=== PATIENT | male | born 1945 | race Caucasian/White ===

== ENCOUNTER → 2019-04-29 09:37 | Outpatient (CLI) | payer MEDICARE, OTHER, SELFPAY ==
--- NOTE | 2019-04-29 | DI.RAD.S_ITS ---
PROCEDURE: XR CHEST 2V INDICATIONS: COUGH TECHNIQUE: 2 views of the chest were acquired. COMPARISON: [facility], , CHEST 2 VIEW, 03/02/2015, 18:48. FINDINGS: Surgical changes and devices: None. Lungs and pleura: Lungs are clear. No pleural effusions or pneumothorax. Mediastinum: Mediastinal contours are normal. Heart size is normal. Bones and chest wall: No suspicious bony abnormalities. Soft tissues appear unremarkable. IMPRESSION: No acute cardiopulmonary findings. Dictated by: Lesly Barraza M.D. on 04/29/2019 at 11:15 Approved by: Lesly Barraza M.D. on 04/29/2019 at 11:15
== END ==
PROVIDERS: PCP Family Medicine; Visit Provider Family Medicine
DX: R05 Cough (principal)
CPT/HCPCS: 71046

== ENCOUNTER 2020-01-20 05:24 | Observation (INO) | payer MEDICARE, OTHER, SELFPAY ==
[2020-01-20] VITALS (9 sets, daily range): BP systolic 125–165; BP diastolic 74–96; PULSE 63–75; RESP 15–18; TEMP 36.3–36.7; O2SAT 96–100; BMI 25.1; BMI 23.9
--- NOTE | 2020-01-20 05:27 | ED.GENADULT ---
HPI - General Adult General Chief complaint: Urogenital-Male Stated complaint: thinks passing kidney stone or appendix Time Seen by Provider: 01/20/20 05:25 Source: patient Mode of arrival: Ambulatory Limitations: no limitations History of Present Illness HPI narrative: 74-year-old male with a history of Parkinson's disease here for evaluation of right-sided flank/abdomen/periumbilical pain. He states that he has had pain in this area off and on for the past couple days however he did wake up with the pain approximately 2 hours prior to arrival and his been worse since that time than it was earlier this week. He does admit that potentially he could be constipated. Denies any urinary symptoms. No fevers. No nausea. No vomiting. Has not tried anything for symptoms prior to arrival. He states that it feels somewhat like a kidney stone that he had in the past but this was 30 years ago and he has not commence that it feels exactly the same way. Has had his gallbladder out still has his appendix. Related Data Home Medications Medication Instructions Recorded Confirmed amantadine HCl 100 mg PO QDAY #0 03/24/16 01/20/20 carbidopa-levodopa 1 tab PO QID #0 03/24/16 01/20/20 propranolol 80 mg PO QDAY #0 03/24/16 01/20/20 rasagiline [Azilect] 1 mg PO QDAY #0 03/24/16 01/20/20 atorvastatin 20 mg PO DAILY 01/20/20 01/20/20 metoprolol succinate 25 mg PO DAILY 01/20/20 01/20/20 pramipexole See Protocol PO DAILY 01/20/20 01/20/20 Allergies Allergy/AdvReac Type Severity Reaction Status Date / Time No Known Allergies Allergy Uncoded 01/20/20 05:34 Review of Systems Constitutional Constitutional: Denies fever(s) Cardiovascular Cardiovascular: Denies chest pain and Denies dyspnea Respiratory Respiratory: Denies dyspnea Gastrointestinal Gastrointestinal: Reports abdominal pain, Reports constipation, Denies nausea and Denies vomiting Genitourinary Genitourinary: Denies hematuria, Denies dysuria, Denies urinary frequency, Denies urinary hesitancy and Denies urinary incontinence Genitourinary: Denies hematuria, Denies urinary frequency, Denies dysuria, Denies urinary incontinence and Denies urinary hesitancy Musculoskeletal Musculoskeletal: Denies arthralgias, Reports back pain (Right-sided flank) and Denies myalgias Integumentary/Breasts Skin/Breast: Denies lesions and Denies rash Neurologic Neurologic: Denies behavioral changes Psychiatric Psychiatric: Denies behavioral changes Hematologic/Lymphatic Hematologic/Lymphatic: Denies easy bleeding and Denies easy bruising Allergic/Immunologic Allergic/Immunologic: Denies urticaria Patient History Medical History Parkinsons disease (Acute) Social History household members: spouse Smoking Status: Never smoker Exam Initial Vital Signs Initial Vital Signs: Vital Signs Temperature 97.8 F 01/20/20 05:25 Pulse Rate 67 01/20/20 05:25 Respiratory Rate 16 01/20/20 05:25 Blood Pressure 165/83 H 01/20/20 05:25 Pulse Oximetry 98 01/20/20 05:25 Const General: cooperative and comfortable Limitations: mental status not altered HENMT Head: normal to inspection and normocephalic Resp Effort & Inspection: normal respiratory effort Cardio Rate: regular rate GI Inspection: non-distended Palpation: soft, No firm and tender (Right-sided flank, right lower quadrant, suprapubic) Back/Spine/Pelvis Back: CVA tenderness right Skin Lesions: no lesions Rashes: no rashes Neuro General: patient alert and patient awake Cognition: normal cognition Speech: speech normal Extrem General: normal to inspection and capillary refill normal Psych Appearance: grossly normal and well kempt Scores GCS [place] coma scale eye opening: Spontaneous Taylor coma scale verbal response: Orientated Taylor coma scale motor response: Obey commands [place] coma scale total score: 15 Course Orders Ordered: ED Orders 01/20/20 05:34 CT abdomen pelvis w con Stat 01/20/20 05:39 Complete Blood Count AUTO DIFF Stat Comprehensive Metabolic Panel Stat Lipase Stat 01/20/20 06:59 Consult to General Surgery Stat Sodium Chloride (Normal Saline 0.9%) 1,000 mls @ 500 mls/hr IV BOLUS ONE Stop: 01/20/20 07:33 Last Admin: 01/20/20 06:02 Dose: 500 mls/hr Documented by: RNESTER Discontinued Medications Ketorolac Tromethamine (Toradol) 30 mg IV NOW ONE Stop: 01/20/20 05:40 Last Admin: 01/20/20 06:02 Dose: 30 mg Documented by: MIRANDA Morphine Sulfate (Morphine) 4 mg IV NOW ONE Stop: 01/20/20 05:35 Last Admin: 01/20/20 06:12 Dose: Not Given Documented by: DESI Morphine Sulfate (Morphine) 2 mg IV NOW ONE Stop: 01/20/20 06:08 Vital Signs Vital signs: Vital Signs - 8 hr 01/20/20 05:25 Temperature 97.8 F Pulse Rate 67 Respiratory Rate 16 Blood Pressure 165/83 H Pulse Oximetry 98 Medical Decision Making Lab Data Lab results reviewed: Yes I reviewed the patient's lab results. Result diagrams: 01/20/20 05:39 01/20/20 05:39 Labs: Lab Results 01/20/20 01/20/20 Range/Units 05:39 05:39 WBC 7.4 (4.5-11.0) X10^3/uL RBC 4.77 (4.5-5.9) X10^6/uL Hgb 15.5 (13.5-17.5) g/dL Hct 45.7 (41-53) % MCV 95.9 (80-100) fL MCH 32.6 (26-34) PG MCHC 34.0 (30-36) % RDW 14.0 (11.6-14.8) % Plt Count 214 (150-400) X10^3/uL Neut % (Auto) 78.7 H (50-75) % Lymph % (Auto) 13.4 L (25-40) % [place] % (Auto) 6.4 (3-14) % Eos % (Auto) 1.0 L (2-4) % Baso % (Auto) 0.5 (0-2) % Neut # (Auto) 5900 (9018-2015) /uL Lymph # (Auto) 1000 L (4347-1894) /uL [place] # (Auto) 500 (0-900) /uL Eos # (Auto) 100 (0-450) /uL Baso # (Auto) 0 (0-100) /uL Sodium 139 (137-145) mmol/L Potassium 4.1 (3.4-5.1) mmol/L Chloride 102 (98-107) mmol/L Carbon Dioxide 30 (22-32) mmol/L BUN 25 H (9-20) mg/dL Creatinine 1.19 (0.66-1.25) mg/dL Estimated GFR 59.6 L (>60) mL/min BUN/Creatinine Ratio 21.0 (6-22) Glucose 111 H (80-110) mg/dL Calcium 9.8 (8.4-10.2) mg/dL Total Bilirubin 1.1 (0.2-1.3) mg/dL AST 24 (17-59) IU/L ALT 6 (<50) IU/L Alkaline Phosphatase 111 (38-126) U/L Total Protein 7.3 (6.3-8.2) g/dL Albumin 4.6 (3.5-5.0) g/dL Globulin 2.7 (1.7-4.1) g/dL Albumin/Globulin Ratio 1.7 (1.0-2.8) Lipase 63 (23-300) U/L Imaging Data CT scan - abdomen/pelvis: Radiologist's Impression: High-grade mechanical small bowel obstruction, transition anterior pelvic region. MDM Narrative Medical decision making narrative: History and physical exam and CT scan are consistent with a small-bowel obstruction. Patient not vomiting. Denied the need for nausea medication. Discussed the case with Dr. Sexton who's on-call for General surgery. Will hold on an injury to known. Will admit to Dr. Sexton for further evaluation and treatment. Discussed the case with the patient. He expressed understanding and agreement. Discharge Plan Departure Patient Disposition: Admitted As Inpatient Clinical Impression: Small bowel obstruction, Parkinson's disease
--- NOTE | 2020-01-20 05:34 | DI.CT.S_ITS ---
PROCEDURE: CT ABDOMEN PELVIS W CON INDICATIONS: Periumbilical right lower quadrant abdominal pain TECHNIQUE: After the administration of intravenous contrast, 5 mm thick sections acquired from the diaphragms to the symphysis. 2.5 mm thick coronal and sagittal reformats were acquired. Optional 10-minute delayed imaging may be performed from the kidneys to the bladder. For radiation dose reduction, the following was used: automated exposure control, adjustment of mA and/or kV according to patient size. COMPARISON: None. FINDINGS: Image quality: Excellent. ABDOMEN: Lung bases: Lung bases are clear. Heart size is normal. No pericardial effusion. Inferior ribs are intact. No basal pleural effusions or pneumothorax. Solid organs: Liver is normal in size and enhancement, without lacerations. Gallbladder status post cholecystectomy. . Biliary system is non-dilated. Pancreas enhances normally, without transection. Spleen is normal in size and enhancement, without lacerations. No adrenal hematomas. Both kidneys enhance normally, without hydronephrosis or lacerations. 3 mm calculus in the left interpolar kidney without obstruction. Small bilateral cysts, largest in the right upper pole measuring approximately 4 cm. Peritoneum and bowel: There is a small bowel obstruction. Nearly diffuse dilatation of the small bowel up to 5 cm with numerous air-fluid levels. There is fecalization of small bowel contents distally just proximal to high-grade stenosis in the right lower quadrant (series 2, image 67). There is no perforation. Small volume free fluid is present in the pelvis likely related to the obstruction. There is sigmoid diverticulosis with no findings of diverticulitis. The colon is otherwise within normal limits. Nodes and vessels: No retroperitoneal or mesenteric adenopathy. Aorta and inferior vena cava are normal in size and enhancement. Miscellaneous: No ventral hernias. PELVIS: Genitourinary: Bladder wall thickness is normal. Miscellaneous: No inguinal hernias or adenopathy. Bones: Pelvic ring and hip joints appear intact. No vertebral compression fractures. IMPRESSION: High-grade small-bowel obstruction with transition point in the right lower quadrant. No significant change from preliminary report. Findings were discussed with Dr. De La O at 8:03 a.m. on 01/20/2020. Dictated by: Jayson Lee M.D. on 01/20/2020 at 7:58 Approved by: Jayson Lee M.D. on 01/20/2020 at 8:04
--- NOTE | 2020-01-20 05:44 | PC.NURSE ---
Patient reports right sided flank pain starting two days ago. Symptoms occuring on and off until awoken this AM with increased pain. Patient reports pain located on right side, umbilical area, and radiating into right flank. Reports pain as 7/10. Affirms some nausea, denies vomiting. Denies any other symptoms. States I think it's either a kidney stone or my appendix.
[2020-01-20 05:49] LABS: Add Manual Diff / Slide Review NO; Basophils Absolute Auto 0 /uL (0-100); Basophils Percent Auto 0.5 % (0-2); Eosinophils Absolute Auto 100 /uL (0-450); Hematocrit 45.7 % (41-53); Hemoglobin 15.5 g/dL (13.5-17.5); Lymphocytes Absolute Auto 1000 /uL (1100-4500); Lymphocytes Percent Auto 13.4 % (25-40); Mean Corpuscular Hemoglobin 32.6 PG (26-34); Mean Corpuscular Volume 95.9 fL (80-100); Monocytes Absolute Auto 500 /uL (0-900); Monocytes Percent Auto 6.4 % (3-14); Neutrophils Absolute Auto 5900 /uL (1500-7000); Neutrophils Percent Auto 78.7 % (50-75); Platelet Count 214 X10^3/uL (150-400); Red Blood Cell Count 4.77 X10^6/uL (4.5-5.9); White Blood Cell Count 7.4 X10^3/uL (4.5-11.0)
[2020-01-20 06:00] LABS: Alanine Aminotransferase 6 IU/L (<50); Albumin 4.6 g/dL (3.5-5.0); Albumin Globulin Ratio 1.7 (1.0-2.8); Alkaline Phosphatase 111 U/L (38-126); Aspartate Aminotransferase 24 IU/L (17-59); Bilirubin Total 1.1 mg/dL (0.2-1.3); Blood Urea Nitrogen 25 mg/dL (9-20); Calcium 9.8 mg/dL (8.4-10.2); Carbon Dioxide 30 mmol/L (22-32); Chloride 102 mmol/L (98-107); Estimated Glomerular Filt Rate 59.6 mL/min (>60); Globulin 2.7 g/dL (1.7-4.1); Glucose 111 mg/dL (80-110); HEMOLYSIS 16 (0-50); Lipase 63 U/L (23-300); Potassium 4.1 mmol/L (3.4-5.1); Sodium 139 mmol/L (137-145); Total Protein 7.3 g/dL (6.3-8.2)
[2020-01-20] MEDS: KETOROLAC 60 MG/2 ML VIAL 30 MG IV (06:02)
[2020-01-20] MEDS: SODIUM CHLORIDE 0.9% 1,000 ML 500 ML IV (06:02)
[2020-01-20 08:02] LABS: COVID19 -Nasal RAPID Negative (Negative)
--- NOTE | 2020-01-20 08:46 | DI.RAD.S_ITS ---
PROCEDURE: [place] SMALL BOWEL FOLLOW THROUGH INDICATIONS: small bowel obstruction. Perform with gastrografin COMPARISON: None. 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 No suspicious abdominal calcifications. Visualized solid organ contours appear normal. No suspicious bony abnormalities. Small bowel: There is abnormally prolonged transit time of barium through the small bowel. Small bowel loops are of dilated caliber throughout where well visualized. Mucosal folds are smooth and of normal thickness. No strictures, intraluminal masses, or extrinsic mass effects are noted. The terminal ileum is identified, and is normal in morphology. The water-soluble contrast predominantly sequestered within the gastric lumen over the entire course of this examination, with very little antegrade flow of contrast into the small bowel. Small bowel contrast did not extend into the colon after at least 5 hours of delay. IMPRESSION: Small mild dilatation measure 5.7 cm with delayed transit of oral contrast through the small bowel into the colon. At no point over the course of this study, terminated at 5:00 a.m. After initiation, was small-bowel seen to extend into the colon. Quality of visualization of the small bowel content is very limited due to the small amount the progress forwards, and osmotic dilution of the contrast. Dictated by: Josiah Ricks M.D. on 01/20/2020 at 14:54 Approved by: Josiah Ricks M.D. on 01/20/2020 at 14:56
[2020-01-20 08:59] LABS: Appearance Urine UA CLEAR; Bilirubin Urine UA NEGATIVE (NEGATIVE); Color Urine UA YELLOW; Glucose Urine UA NEGATIVE (Negative); Ketones Urine UA TRACE (NEGATIVE); Leukocyte Esterase Urine UA NEGATIVE (NEGATIVE); Nitrite Urine UA NEGATIVE (Negative); Occult Blood Urine UA NEGATIVE (Negative); Protein Urine UA NEGATIVE (Negative); Urobilinogen Urine UA 0.2 E.U./dL (0.2); pH Urine UA 6.5 (4.5-8.0)
[2020-01-20 09:11] LABS: Bacteria Urine Few (2-10); Culture Indicated Urine Cult Not Indicated; RBC Urine 0-1/HPF (0-5/HPF); WBC Urine 0-1/HPF (0-5/HPF)
--- NOTE | 2020-01-20 09:17 | P.HP_ITS ---
History of Present Illness History of Present Illness Date Patient Seen: 01/20/20 Time Patient Seen: 09:17 Chief complaint: thinks passing kidney stone or appendix Narrative: Feng is a 74-year-old man who is seen in consultation for small- bowel obstruction. He was having some vague abdominal pain with last couple of days and thought that he was perhaps having a kidney stone and presented to the emergency room for evaluation. He had a CT of the abdomen pelvis which demonstrates a small-bowel obstruction with a transition point in the pelvis. He was afebrile white blood cell count 7. He says that he is passing a small amount of air no stool in several days. He has prior history of abdominal surgery laparoscopic cholecystectomy. He is mildly nauseated, no vomiting. no prior history of small-bowel obstruction. Medical history is significant for Parkinson's, hypertension, atrial fibrillation for which is rate controlled with beta blockade. Patient History Medical History Atrial fibrillation (Acute) Parkinsons disease (Acute) Surgical History History of cholecystectomy (Acute) Family & Social History Social History: household members spouse Safety & Behavioral: Feels Safe in Current Yes Environment Been Physically Hurt or No Threatened By a Person Tobacco & Substance use: Smoking Status Never smoker alcohol intake frequency 0-2 drinks per day Substance Use Type does not use Meds Home Medications and Allergies Home Medications Medication Instructions Recorded Confirmed Type amantadine HCl 100 mg PO QDAY #0 03/24/16 01/20/20 History carbidopa-levodopa 0.5 tab PO Q4H #0 03/24/16 01/20/20 History propranolol 80 mg PO BEDTIME #0 03/24/16 01/20/20 History atorvastatin 20 mg PO DAILY 01/20/20 01/20/20 History carbidopa-levodopa 1 tab PO Q4H 01/20/20 01/20/20 History metoprolol succinate 25 mg PO DAILY 01/20/20 01/20/20 History pramipexole 1 mg PO BEDTIME 01/20/20 01/20/20 History selegiline HCl 5 mg PO BEDTIME 01/20/20 01/20/20 History Allergies Allergy/AdvReac Type Severity Reaction Status Date / Time No Known Allergies Allergy Uncoded 01/20/20 05:34 Review of Systems Review of Systems Narrative: A 10 point review of systems is negative except as noted in the HPI Exam Vital Signs (past 8 hours): - 01/20/20 05:25 01/20/20 07:00 01/20/20 08:06 Temperature 97.8 F Pulse Rate 67 64 65 Respiratory Rate 16 16 Blood Pressure 165/83 H 137/75 136/74 Pulse Oximetry 98 98 97 Oxygen Delivery Method Room Air Narrative Exam Narrative: General-no acute distress, well nourished adult male HEENT-moist mucous membranes, no scleral icterus Neck-supple, no lymphadenopathy Chest- non labored respirations, clear to auscultation bilaterally Cardiac-regular rate no peripheral edema Abdomen-soft, minimally tender periumbilical, non distended Extremities-warm, well perfused Neurological-alert and oriented, tremulous hands Objective Labs Result Diagrams: 01/20/20 05:39 01/20/20 05:39 Labs: Laboratory Results - last 24 hr 01/20/20 01/20/20 01/20/20 05:39 05:39 07:00 WBC 7.4 RBC 4.77 Hgb 15.5 Hct 45.7 MCV 95.9 MCH 32.6 MCHC 34.0 RDW 14.0 Plt Count 214 Neut % (Auto) 78.7 H Lymph % (Auto) 13.4 L [place] % (Auto) 6.4 Eos % (Auto) 1.0 L Baso % (Auto) 0.5 Neut # (Auto) 5900 Lymph # (Auto) 1000 L [place] # (Auto) 500 Eos # (Auto) 100 Baso # (Auto) 0 Sodium 139 Potassium 4.1 Chloride 102 Carbon Dioxide 30 BUN 25 H Creatinine 1.19 Estimated GFR 59.6 L BUN/Creatinine Ratio 21.0 Glucose 111 H Calcium 9.8 Total Bilirubin 1.1 AST 24 ALT 6 Alkaline Phosphatase 111 Total Protein 7.3 Albumin 4.6 Globulin 2.7 Albumin/Globulin Ratio 1.7 Lipase 63 Urine Color Urine Appearance Urine pH Ur Specific [place] Urine Protein Urine Glucose (UA) Urine Ketones Urine Occult Blood Urine Nitrate Urine Bilirubin Urine Urobilinogen Ur Leukocyte Esterase Urine RBC Urine WBC Urine Bacteria Ur Culture Indicated? COVID-19 PCR Negative 01/20/20 08:30 WBC RBC Hgb Hct MCV MCH MCHC RDW Plt Count Neut % (Auto) Lymph % (Auto) [place] % (Auto) Eos % (Auto) Baso % (Auto) Neut # (Auto) Lymph # (Auto) [place] # (Auto) Eos # (Auto) Baso # (Auto) Sodium Potassium Chloride Carbon Dioxide BUN Creatinine Estimated GFR BUN/Creatinine Ratio Glucose Calcium Total Bilirubin AST ALT Alkaline Phosphatase Total Protein Albumin Globulin Albumin/Globulin Ratio Lipase Urine Color Yellow Urine Appearance Clear Urine pH 6.5 Ur Specific [place] 1.010 Urine Protein Negative Urine Glucose (UA) Negative Urine Ketones Trace H Urine Occult Blood Negative Urine Nitrate Negative Urine Bilirubin Negative Urine Urobilinogen 0.2 Ur Leukocyte Esterase Negative Urine RBC 0-1/hpf Urine WBC 0-1/hpf Urine Bacteria Few (2-10) H Ur Culture Indicated? Cult not indicated COVID-19 PCR Assessment & Plan Assessment & Plan narrative: 74-year-old man with atrial fibrillation and Parkinson's disease who is admitted with a small-bowel obstruction history of abdominal surgery. Reviewed his CT which demonstrates small-bowel obstruction with transition point. He is afebrile it without peritonitis. I recommended that we proceed with conservative management at this time. Small-bowel follow- through has been ordered. No need for nasogastric tube at this point unless he becomes nauseated with emesis. -NPO IV fluids -small-bowel follow-through -SCDs for VT prophylaxis -okay for home meds
[2020-01-20] MEDS: SODIUM CHLORIDE 0.9% 1,000 ML 100 ML IV (10:36)
[2020-01-20] MEDS: CARBIDOPA-LEVODOPA 25/100 TABLET 0.5 EACH PO ×3 (13:09→20:53)
[2020-01-20] MEDS: CARBIDOPA-LEVODOPA ER 50/200 TABLET 0.5 EACH PO ×3 (13:09→20:53)
[2020-01-20] MEDS: HYDROMORPHONE 1 MG INJ 0.5 MG IV (13:09)
[2020-01-20] MEDS: AMANTADINE 100 MG CAPSULE PO (13:12)
--- NOTE | 2020-01-20 14:30 | PC.NURSE ---
Admit Note Pt arrived to rm [id number] at 0815 via wheelchair from ER. Pt alert and oriented. Denied abdominal pain on arrival, last BM yesterday, not passing flatus. Denies nausea. Tremors noted to Jonathon and pt's Parkinson's meds given at that time. Dr. Sexton at bedside to eval patient and meds ok to be given with sips of water, otherwise pt NPO. Small bowel follow up done this afternoon, pt received Dilaudid x1 for pain 4/10 to upper abd. SBA in room, steady on feet. Oriented to room at arrival and to call light/bed/tv controls. Declines to lock up any valuables. Laptop, cell phone, and glasses at bedside. Call light within reach.
[2020-01-20] MEDS: PRAMIPEXOLE 1 MG TABLET PO (20:53)
[2020-01-20] MEDS: SELEGILINE 5 MG CAPSULE PO (20:53)
[2020-01-20] MEDS: PROPRANOLOL ER 80 MG CAP.SA.24H PO (20:53)
--- NOTE | 2020-01-20 23:17 | PC.NURSE ---
Patient had incontinent BM around 1629, then showered. Around 1899 patient had another loose BM and an occurrence of emesis. Patient has not had any emesis since then and has no nausea. Dr. Collins was notified of emesis and no new orders were received.
[2020-01-21] VITALS: BP 95/62; PULSE 65; RESP 16; TEMP 36.3; O2SAT 96
[2020-01-21] MEDS: CARBIDOPA-LEVODOPA 25/100 TABLET 0.5 EACH PO ×4 (01:35→13:46)
[2020-01-21] MEDS: CARBIDOPA-LEVODOPA ER 50/200 TABLET 0.5 EACH PO ×4 (01:36→13:46)
[2020-01-21 04:15] VITALS: O2SAT 96
--- NOTE | 2020-01-21 05:26 | PC.NURSE ---
Pt has been awake most of the night and having loose stools.
[2020-01-21] MEDS: SODIUM CHLORIDE 0.9% 1,000 ML 100 ML IV (05:33)
[2020-01-21 05:43] VITALS: BP 106/63; PULSE 68; RESP 20; TEMP 36.2; O2SAT 97
[2020-01-21 05:55] LABS: Add Manual Diff / Slide Review NO; Basophils Absolute Auto 0 /uL (0-100); Basophils Percent Auto 0.5 % (0-2); Eosinophils Absolute Auto 100 /uL (0-450); Eosinophils Percent Auto 1.7 % (2-4); Hematocrit 43.7 % (41-53); Hemoglobin 14.4 g/dL (13.5-17.5); Lymphocytes Absolute Auto 600 /uL (1100-4500); Lymphocytes Percent Auto 7.2 % (25-40); Mean Corpuscular HGB Conc 32.9 % (30-36); Mean Corpuscular Hemoglobin 32.2 PG (26-34); Mean Corpuscular Volume 97.8 fL (80-100); Monocytes Absolute Auto 400 /uL (0-900); Monocytes Percent Auto 5.4 % (3-14); Neutrophils Absolute Auto 6600 /uL (1500-7000); Neutrophils Percent Auto 85.2 % (50-75); Platelet Count 219 X10^3/uL (150-400); Red Blood Cell Count 4.47 X10^6/uL (4.5-5.9); Red Cell Distribution Width 14.4 % (11.6-14.8); White Blood Cell Count 7.7 X10^3/uL (4.5-11.0)
[2020-01-21 06:03] LABS: BUN Creatinine Ratio 20.7 (6-22); Blood Urea Nitrogen 23 mg/dL (9-20); Calcium 9.6 mg/dL (8.4-10.2); Carbon Dioxide 28 mmol/L (22-32); Chloride 110 mmol/L (98-107); Estimated Glomerular Filt Rate > 60.0 mL/min (>60); Glucose 109 mg/dL (80-110); HEMOLYSIS < 15 (0-50); Magnesium 2.2 mg/dL (1.6-2.3); Potassium 4.7 mmol/L (3.4-5.1); Sodium 143 mmol/L (137-145)
--- NOTE | 2020-01-21 07:49 | DI.RAD.S_ITS ---
PROCEDURE: XR ABDOMEN 1V INDICATIONS: Neg SBFT yesterday had bowel movement afterward but vomited TECHNIQUE: One view of the abdomen acquired. COMPARISON: [facility], [place], [place] SMALL BOWEL FOLLOW THROUGH, 01/20/2020, 8:02. [facility], CT, CT ABDOMEN PELVIS W CON, 01/20/2020, 6:03. FINDINGS: Surgical changes and devices: Surgical clips in the gallbladder fossa. Bowel: A few scattered residual dilated air-filled small bowel loops are present. Overall there are fewer dilated small bowel loops visible. There is oral contrast throughout the colon and in the rectum. No free intraperitoneal air detected. Soft tissues: No suspicious abdominal calcifications. Visualized solid organ contours appear normal in size. Bones: No suspicious bony lesions. IMPRESSION: 1. Oral contrast throughout the colon suggests resolution of small bowel obstruction. 2. There are few scattered prominent small bowel loops visible suggesting residual ileus versus persistent partial obstruction. Dictated by: Radha Amor M.D. on 01/21/2020 at 8:49 Approved by: Radha Amor M.D. on 01/21/2020 at 8:52
[2020-01-21 08:57] VITALS: BP 113/69; PULSE 55; RESP 16; TEMP 36.2; O2SAT 98
[2020-01-21] MEDS: AMANTADINE 100 MG CAPSULE PO (09:36)
--- NOTE | 2020-01-21 10:12 | P.PN_ITS ---
Subjective Subjective Date Patient Seen: 01/21/20 Time Patient Seen: 10:13 Interval history: Small-bowel follow-through yesterday and demonstrated new transit of contrast after 5 hours. Several hours later he had a large amount of stool output and he was started on clear liquid diet. Later that evening he had several bouts of emesis but he has had no nausea no further vomiting for the past 12 hours. He is continuing to pass gas and have loose stool. No abdominal pain. Exam Vital Signs (past 8 hours): - 01/21/20 04:15 01/21/20 05:43 01/21/20 08:57 Temperature 97.2 F L 97.2 F L Pulse Rate 68 55 L Respiratory Rate 20 16 Blood Pressure 106/63 113/69 Pulse Oximetry 96 97 98 Oxygen Delivery Method Room Air Oxygen Flow Rate 0 Narrative Exam Narrative: General adult male alert oriented no acute distress Abdomen soft minimally tender to palpation bilateral lower quadrants nondistended no peritonitis Objective Labs Result Diagrams: 01/21/20 05:35 01/21/20 05:35 Labs: Laboratory Results - last 24 hr 01/21/20 01/21/20 05:35 05:35 WBC 7.7 RBC 4.47 L Hgb 14.4 Hct 43.7 MCV 97.8 MCH 32.2 MCHC 32.9 RDW 14.4 Plt Count 219 Neut % (Auto) 85.2 H Lymph % (Auto) 7.2 L [place] % (Auto) 5.4 Eos % (Auto) 1.7 L Baso % (Auto) 0.5 Neut # (Auto) 6600 Lymph # (Auto) 600 L [place] # (Auto) 400 Eos # (Auto) 100 Baso # (Auto) 0 Sodium 143 Potassium 4.7 Chloride 110 H Carbon Dioxide 28 BUN 23 H Creatinine 1.11 Estimated GFR > 60.0 BUN/Creatinine Ratio 20.7 Glucose 109 Calcium 9.6 Magnesium 2.2 Assessment & Plan Assessment and plan (1) Small bowel obstruction: Status: Acute Assessment & Plan narrative: 74-year-old man admitted with a small-bowel obstruction which appears to be resolving. He had small-bowel follow-through study yesterday and I reviewed his abdominal x-ray from today which demonstrates contrast throughout his colon is also having bowel movements. Will advance his diet from clear liquids to regular. If he is doing well this afternoon then he may potentially discharge home. Quality VTE Deep Vein Thrombosis/Pulmonary Embolism Present on Admission: No
[2020-01-21 10:16] VITALS: O2SAT 99
[2020-01-21 12:00] VITALS: BP 102/58; PULSE 62; RESP 16; TEMP 36.2; O2SAT 99
--- NOTE | 2020-01-21 14:07 | CM.IDA ---
Initial DCP Assessment Note Patient is a 74 yo male, resident of [place]. Patient presents w/abd discomfort, SBO identified by Dr Sexton. PCP: Alfredo Du Payer: MARIAA/Randal reviewed chart. SAMUEL Avila explains patient is doing well, may be able to DC home if regular diet is tolerated. 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 Active in room, spouse at bedside. Will follow closely in case this changes today JW
--- NOTE | 2020-01-21 15:49 | PC.NURSE ---
1535- Patient given discharge instruction and he verbalizes understanding. IV heplock removed. Patient escorted to the ER entrance to wait for his ride. Stable at the time of discharge.
--- NOTE | 2020-01-21 16:54 | P.DS_ITS ---
History of Present Illness History of Present Illness Chief complaint: thinks passing kidney stone or appendix Narrative: Feng is a 74-year-old man who is seen in consultation for small- bowel obstruction. He was having some vague abdominal pain with last couple of days and thought that he was perhaps having a kidney stone and presented to the emergency room for evaluation. He had a CT of the abdomen pelvis which demonstrates a small-bowel obstruction with a transition point in the pelvis. He was afebrile white blood cell count 7. He says that he is passing a small amount of air no stool in several days. He has prior history of abdominal surgery laparoscopic cholecystectomy. He is mildly nauseated, no vomiting. no prior history of small-bowel obstruction. Medical history is significant for Parkinson's, hypertension, atrial fibrillation for which is rate controlled with beta blockade. Discharge Providers Provider Date of admission: 01/20/20 07:50 Discharge Date: 01/21/20 Primary care physician: Alfredo Du MD Consults: 01/20/20 06:59 Consult to General Surgery Stat Comment: Consulting Provider: Bill Sexton Reason for consultation: Small-bowel obstruction Has provider been notified: Yes Discharge provider: Bill Sexton MD Summary Hospital Course Discharge Diagnosis: Small-bowel obstruction Hospital Course: His manage conservatively for his presumed adhesive small-bowel obstruction. A small-bowel follow-through study with Gastrografin was performed. And was therapeutic. He had resolution of his abdominal pain and multiple bowel movements. A follow-up x-ray demonstrates contrast throughout the colon. His diet was advanced as tolerated. On the date of discharge he is feeling well tolerating regular diet without nausea vomiting. Status at Discharge Cognitive/behavioral status at discharge: oriented Functional status at discharge: independent ambulation Exam Vital Signs (past 8 hours): - 01/21/20 08:57 01/21/20 10:16 01/21/20 12:00 Temperature 97.2 F L 97.2 F L Pulse Rate 55 L 62 Respiratory Rate 16 16 Blood Pressure 113/69 102/58 L Pulse Oximetry 98 99 99 Oxygen Delivery Method Room Air Oxygen Flow Rate 0 Narrative Exam Narrative: General adult male alert oriented no acute distress Abdomen soft nontender nondistended Objective Labs Result Diagrams: 01/21/20 05:35 01/21/20 05:35 Labs: Laboratory Results - last 24 hr 01/21/20 01/21/20 05:35 05:35 WBC 7.7 RBC 4.47 L Hgb 14.4 Hct 43.7 MCV 97.8 MCH 32.2 MCHC 32.9 RDW 14.4 Plt Count 219 Neut % (Auto) 85.2 H Lymph % (Auto) 7.2 L [place] % (Auto) 5.4 Eos % (Auto) 1.7 L Baso % (Auto) 0.5 Neut # (Auto) 6600 Lymph # (Auto) 600 L [place] # (Auto) 400 Eos # (Auto) 100 Baso # (Auto) 0 Sodium 143 Potassium 4.7 Chloride 110 H Carbon Dioxide 28 BUN 23 H Creatinine 1.11 Estimated GFR > 60.0 BUN/Creatinine Ratio 20.7 Glucose 109 Calcium 9.6 Magnesium 2.2 Discharge Plan Discharge Plan Patient Disposition: Home Discharge comment: resolved small bowel obstruction Discharge orders & Medications Prescriptions: Continued amantadine HCl 100 MG capsule 100 mg PO QDAY Qty: 0 RF: 0 propranolol 80 MG capsule,extended release 24 hr 80 mg PO BEDTIME Qty: 0 RF: 0 carbidopa-levodopa 25 MG/100 MG tablet 0.5 tab PO Q4H Qty: 0 RF: 0 pramipexole 1 mg Tablet 1 mg PO BEDTIME RF: 0 atorvastatin 20 mg Tablet 20 mg PO DAILY RF: 0 metoprolol succinate 25 mg Tablet Extended Release 24 Hr 25 mg PO DAILY RF: 0 carbidopa-levodopa 25-100 mg tablet extended release 1 tab PO Q4H RF: 0 selegiline HCl 5 mg capsule 5 mg PO BEDTIME RF: 0 trospium 20 mg Tablet 20 mg PO DAILY RF: 0 Follow up/Referrals: Alfredo Du MD [Primary Care Provider] - Diet/Activity/Treatments Diet: Regular Visit Report/Discharge Packet Visit Report Forms: Patient Portal/API, Stroke Signs & Symptoms Discharge Data Primary Care Provider: Alfredo Du Attending Provider: Bill Sexton Admit Date/Time: 01/20/20 07:50 Discharges patient from system. Discharge Date/Time: 01/21/20 15:35 Quality VTE Deep Vein Thrombosis/Pulmonary Embolism Present on Admission: No
== END 2020-01-21 15:35 | disposition home or self-care (01) ==
LOC: ED 06:54 → AC 08:04 → ICU 09:20 → AC 01-21 11:10
PROVIDERS: Surgery; Admitting Provider Surgery; Emergency Provider Emergency Medicine; PCP Family Medicine; Referring Provider Emergency Medicine; Visit Provider Surgery
DX: K56.609 Unspecified intestinal obstruction, unspecified as to partial versus complete obstruction (principal); Z11.59 Encounter for screening for other viral diseases; G20 Parkinson's disease; I48.91 Unspecified atrial fibrillation
CPT/HCPCS: 36415; 74018; 74177; 74250; 80048; 80053; 81001; 83690; 83735; 85025; 87635; 87797; 96361; 96374; 96375; 99284; G0378; J1170; J1885; Q9967

== ENCOUNTER → 2020-02-02 09:19 | Outpatient (CLI) | payer MEDICARE, OTHER, SELFPAY ==
[2020-01-20 11:37] VITALS: BMI 23.9
[2020-02-03 19:21] LABS: COVID19 Sendout Not Detected (Not Detect)
== END ==
PROVIDERS: PCP Family Medicine; Visit Provider Physician Assistant
DX: Z11.59 Encounter for screening for other viral diseases (principal)
CPT/HCPCS: 87635

== ENCOUNTER 2020-02-05 13:43 | Day surgery (SDC) | payer MEDICARE, OTHER, SELFPAY ==
[2020-01-20 11:37] VITALS: BMI 23.9
--- NOTE | 2020-02-05 | PATH_ITS ---
[facility] Accession Number: [id number] . 01 Material submitted: . PART A: duodenum - THIRD PORTION DUODENUM PART B: gastrointestinal site - ANTRUM PART C: gastrointestinal site - FUNDUS PART D: gastrointestinal site - BODY PART E: esophagus, E-G Junction - GE JUNCTION 6 O'CLOCK PART F: esophagus, E-G Junction - GE JUNCTION 3 O'CLOCK . 01 Clinical history: . SDC . 02 Diagnosis: A. Duodenum, Third Portion, Biopsy: Duodenal mucosa with no diagnostic abnormality. Negative for active inflammation, features of sprue, dysplasia, or malignancy. . B. Antrum, Biopsies: Gastric antral mucosa with reactive gastropathy. Negative for Helicobacter organisms by immunohistochemistry. Negative for intestinal metaplasia. Negative for dysplasia or malignancy. . C. Fundus, Biopsy: Gastric antral mucosa with no diagnostic abnormality. No evidence of Helicobacter organisms on H/E stain. Negative for intestinal metaplasia. Negative for dysplasia and malignancy. . D. Body, Biopsy: Gastric body mucosa with minimal chronic inflammation. No evidence of Helicobacter organisms on H/E stain. Negative for intestinal metaplasia. Negative for dysplasia or malignancy. . E. Gastroesophageal Junction, 6 o'clock, Biopsy: Scant squamous epithelium with no diagnostic abnormality. No glandular mucosa present for evaluation. Negative for dysplasia or malignancy. . F. Gastroesophageal Junction, 3 o'clock, Biopsy: Squamocolumnar junctional mucosa with mild chronic inflammation. Negative for specialized intestinal metaplasia on alcian blue stain. Negative for dysplasia or malignancy. [facility] 02/10/2020 1602 Local . 02 Electronically signed: . Justin Lujan MD, PhD, Pathologist NPI- [id number] . 01 Gross description: . Part A: THIRD PORTION DUODENUM: Received in formalin is 1 fragment(s) of her, soft tissue measuring 0.3 x 0.2 x 0.2 cm submitted entirely in 1 cassette(s) Part B: ANTRUM: Received in formalin is 1 fragment(s) of her, soft tissue measuring 0.2 x 0.2 x 0.2 cm submitted entirely in 1 cassette(s) Part C: FUNDUS: Received in formalin is 1 fragment(s) of her, soft tissue measuring 0.2 x 0.2 x 0.2 cm submitted entirely in 1 cassette(s) Part D: BODY: Received in formalin are 2 fragment(s) of her, soft tissue measuring 0.1 x 0.1 x 0.1 cm to 0.3 x 0.2 x 0.2 cm submitted entirely in 1 cassette(s) Part E: GE JUNCTION 6 O'CLOCK: Received in formalin is 1 fragment(s) of her, soft tissue measuring 0.1 x 0.1 x 0.1 cm submitted entirely in 1 cassette(s) Part F: GE JUNCTION 3 O'CLOCK: Received in formalin is 1 fragment(s) of her, soft tissue measuring 0.2 x 0.1 x 0.1 cm submitted entirely in 1 cassette(s) /CHARMAINE 02/08/20202008 Local . 02 Microscopic: . B. An immunohistochemical stain was performed to evaluate for Helicobacter organisms and is negative. The control stain showed appropriate reactivity. . F. An AB/PAS stain is performed to evaluate for intestinal metaplasia, and is negative for Goblet cells. The control stain shows appropriate reactivity. . * This test was developed and its performance characteristics determined by [facility]. It has not been cleared or approved by the U.S. Food and Drug Administration. The FDA has determined that such clearance or approval is not necessary. This test is used for clinical purposes. It should not be regarded as investigational or for research. . 02 Pathologist provided ICD-10: R13.10, K31.9, K20.9 . 02 CPT . 493264, 733796, 151436, 599447, 179158, 317622, D93375, 798400 Performed at: 01 [facility] [place] [address] [id number] MD Kareem Lomax MD Phone: [phone] Performed at: 02 [facility] [place] [address] [place], [place] [id number] MD Marina Valenzuela MD Phone: [phone]
--- NOTE | 2020-02-05 12:04 | P.HP_ITS ---
History of Present Illness History of Present Illness Date Patient Seen: 02/05/20 Chief complaint: SDC Narrative: 74 Years Old Male seen today for consideration of a diagnostic EGD. Has trouble swallowing pills. 3 months ago a pill got stuck overnight and he had consistent and severe acid reflux. Food and water also sometimes gets stuck. He does have Parkinson's disease. History of GERD while taking baby aspirin many years ago. Non-smoker. 1 cup coffee per day. 1 serving of alc ohol daily. No NSAIDs. Family history of esophageal cancer in his brother. Overall health issues have been stable, including no major cardiac events for at least 6 weeks. Current Medications (verified): 1) Atorvastatin Calcium 20 Mg Oral Tablet (Atorvastatin Calcium) .... Take 1 tablet by mouth daily for cholesterol control. 2) Metoprolol Succinate Er 25 Mg Oral Tablet Extended Release 24 Hour (Metoprolol Succinate) .... Take 1/2 tablet 3 times a week 3) Sinemet Cr 25-100 Mg Oral Tablet Extended Release (Carbidopa-Levodopa) .... take 1 tablet by mouth 6 times a day 4) Carbidopa-Levodopa 25-100 Mg Oral Tablet (Carbidopa-Levodopa) .... Take 1/2 by mouth 6 times a day 5) Mirapex 0.5 Mg Oral Tablet (Pramipexole Dihydrochloride) .... Take 1 tablet twice a day 6) Azilect 1 Mg Oral Tablet (Rasagiline Mesylate) .... Take one by mouth every day Allergies (verified): No Known Drug Allergies Past Medical History: Degenerative joint disease DYSPHAGIA BPH W/URINARY OBSTRUCTION HEADACHE, TENSION EDEMA, DEPENDENT PARKINSON'S DISEASE Hyperlipidemia COPD PALPITATIONS ACTINIC KERATOSIS, HX OF Basal cell carcinoma of nose Basal cell carcinoma of right lower leg Past Surgical History: Kidney Stones (1989) Lithotripy (2004) Cholecystectomy (2009) Left cheek benign juvenile angiofibroma removal Bilateral knee replacement (05/2007) Colonoscopy, 2018 Family History: Reviewed history from 11/04/2019 and no changes required: Father: Alcohol, Proate Cancer Mother: Parkinsons Siblings: Throat Cancer Social History: Reviewed history from 05/28/2016 and no changes required: 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 Limited exercise opportunities due to work and living situation in [place], but trying to incorporate it more into his schedule. Patient History Medical History Atrial fibrillation (Acute) Parkinsons disease (Acute) Surgical History History of cholecystectomy (Acute) Family & Social History Social History: household members spouse Tobacco & Substance use: Smoking Status Never smoker alcohol intake never alcohol intake frequency 0-2 drinks per day Substance Use Type does not use Meds Home Medications and Allergies Home Medications Medication Instructions Recorded Confirmed Type amantadine HCl 100 mg PO QDAY #0 03/24/16 02/05/20 History carbidopa-levodopa 0.5 tab PO Q4H #0 03/24/16 02/05/20 History propranolol 80 mg PO BEDTIME #0 03/24/16 02/05/20 History atorvastatin 20 mg PO DAILY 01/20/20 02/05/20 History carbidopa-levodopa 1 tab PO Q4H 01/20/20 02/05/20 History metoprolol succinate 25 mg PO DAILY 01/20/20 02/05/20 History pramipexole 1 mg PO BEDTIME 01/20/20 02/05/20 History selegiline HCl 5 mg PO BEDTIME 01/20/20 02/05/20 History trospium 20 mg PO DAILY 01/20/20 02/05/20 History Allergies Allergy/AdvReac Type Severity Reaction Status Date / Time No Known Allergies Allergy Verified 02/05/20 13:53 Review of Systems Review of Systems ROS: Yes All systems reviewed with the patient and are negative except as otherwise documented Exam Narrative Exam Narrative: GENERAL: Alert and oriented, appearing stated age and in no acute distress. HEENT: Head normocephalic/atraumatic. Pupils equal, round, and reactive to light and accomodation. Extraocular muscles intact. Tympanic membranes clear. Nasal mucosa moist, septum midline. Oral mucosa moist, no lesions. Neck soft and supple, no lymphadenopathy. LUNGS: Clear to ausculation bilaterally, no wheezes, rhonchi or rales. CV: Normal S1 and S2 with regular rate and rhythm, no audible murmurs, rubs or gallops. ABDOMEN: Soft, non-tender, non-distended, no organomegaly. Positive bowel sounds. EXTREMITIES: No clubbing, cyanosis, or edema. NEURO: Cranial nerves II through XII grossly intact, no focal deficits. PSYCH: Alert and oriented x 3. SKIN: No concerning lesions. Assessment & Plan Assessment & Plan narrative: 1. EGD The nature and character of the procedure as well as anticipated results were discussed. The possibility of not completing the procedure was also discussed. Possible complications including aspiration pneumonia, bleeding, perforation and reaction to medications either for sedation or preparation and missed lesions were discussed. Questions were answered and proceeding to the colonoscopy was elected. Informed consent signed. I sincerely appreciate the referral allowing me to participate in this patient's care. Please contact me with any questions or concerns.
--- NOTE | 2020-02-05 12:06 | PM.OP.ENDO ---
Operative Date/Time/Diagnoses Date of procedure: 02/05/20 Procedure Notes SCOAP/Timeout: 2:30 p.m. Procedure in detail: ENDOSCOPIST: Tiffanie Gaspar MD Sedation RN: Mikaela Nielson RN Sedation start time: 2:31 p.m. Sedation end time: 2:45 p.m. PROCEDURE: EGD with biopsy REFERRING PROVIDER: Dr. Du INDICATIONS: 1. Dysphagia MEDICATION: Incremental doses of Versed and fentanyl until an appropriate level of sedation was achieved. ASA Ratin DURATION OF PROCEDURE: 14 minutes. COMPLICATIONS: None. LIMITATIONS: None EXTENT OF PROCEDURE: Third portion of the Duodenum. PROCEDURE: The high-definition gastroduodenoscope was introduced into the posterior oropharynx under direct vision after Hurricaine spray, noted IV sedation, and proper informed consent. The esophagus was identified and intubated under direct visualization. The scope was quickly passed through the esophagus and into the fundus of the stomach. A clear fundal pool was aspirated. The scope was then advanced to the antrum and the pylorus was identified. The scope was passed through the pylorus into the second and third portions of the duodenum. No abnormalities were noted in the duodenum, duodenal bulb or pyloric channel. Random biopsy taken x2. The antrum has superficial hyperemesis, random biopsies taken x2. J maneuver was produced. No abnormalities were noted of the proximal body, fundus or cardia. Random biopsies taken x2. A small hiatal hernia was noted. Scope was broken out of the J maneuver and the remainder of the stomach was carefully inspected upon withdrawal and had some superficial hyperemesis, random biopsies taken x2. The stomach was carefully deflated of all air on withdrawal. The distal esophagus was carefully inspected and Z-line was noted to be irregular, 2 quadrant biopsies taken at 3 and 6 o'clock. Top of the gastric folds noted at 41 cm from the incisors; circumferential extent of the metaplasia was 40 cm from the incisors; maximal extent of the metaplasia was 40 cm from the incisors. The remainder of the esophagus was normal upon withdrawal. The larynx and vocal cords appeared to be unremarkable. IMPRESSION: 1. Superficial hyperemesis, antrum and body 2. Endoscopically suspected esophageal mucosa, C1M1 PLAN: 1. Follow-up in clinic status post pathology results. The possibility of missed lesion including a malignancy was discussed prior with the patient. Potential alarm symptoms have been discussed and should be reported by the patient immediately.
[2020-02-05 14:05] VITALS: BP 102/61; PULSE 77; RESP 16; TEMP 36.7; O2SAT 96; BMI 25.8
[2020-02-05] MEDS: LACTATED RINGERS 1,000 ML 200 ML IV (14:12)
[2020-02-05] MEDS: fentaNYL 250 MCG/5 ML INJ IV (14:31)
[2020-02-05] MEDS: MIDAZOLAM 5 MG/5 ML VIAL IV (14:31)
[2020-02-05] MEDS: LIDOCAINE 4% SOLN 50 ML 20 ML TOP (14:31)
[2020-02-05] MEDS: LIDOCAINE JELLY 2% 5 ML 1 APPLIC TOP (14:34)
[2020-02-05 14:51] VITALS: BP 119/72; PULSE 63; RESP 16; TEMP 36.3; O2SAT 98
[2020-02-05 14:55] VITALS: BP 102/69; PULSE 69; RESP 16; O2SAT 96
[2020-02-05 15:01] VITALS: BP 104/76; PULSE 67; RESP 22; O2SAT 96
[2020-02-05 15:10] VITALS: BP 109/69; PULSE 69; RESP 19; TEMP 36.9; O2SAT 95
== END 2020-02-05 15:20 | disposition home or self-care (01) ==
PROVIDERS: PCP Family Medicine; Referring Provider Student in an Organized Health Care Education/Training Program; Visit Provider Student in an Organized Health Care Education/Training Program
PROC: 0DJ08ZZ Inspection of Upper Intestinal Tract, Via Natural or Artificial Opening Endoscopic (ICD-10-PCS; CPT 43235; principal; 2020-02-05 14:30)
DX: K20.9 Esophagitis, unspecified (principal); K44.9 Diaphragmatic hernia without obstruction or gangrene; I48.91 Unspecified atrial fibrillation; G20 Parkinson's disease; K31.9 Disease of stomach and duodenum, unspecified; K29.50 Unspecified chronic gastritis without bleeding
CPT/HCPCS: 43239; J2250; J3010

== ENCOUNTER 2020-08-31 09:20 | Outpatient (RCR) | payer MEDICARE, OTHER, SELFPAY ==
[2020-01-20 11:37] VITALS: BMI 23.9
--- NOTE | 2020-08-31 12:59 | ST.OPIE ---
Visit Care Team Role Provider Type Alfredo Du MD Family Provider Physician Primary Care Provider Specialty: Family Practice Address: [address] [place] [address], [id number] Email: [email or web address] Tao Bonilla MD Attending Provider Physician Referring Provider Specialty: Ear, Nose, Throat Address: [address] [place] [address], [id number] Email: [email or web address] Speech-Language Pathology Initial Evaluation [facility] [facility] Voice Resonance Evaluation Start: 08/31/20 09:13 Freq: Status: Active Protocol: Document 08/31/20 11:38 LNK (Rec: 08/31/20 12:58 LNK [id number]) Voice and Resonance Assessment Session Time Visit Start Time 09:30 Visit Stop Time 10:30 Total Visit Minutes 60 Visit Information Plan of Care Dates 08/31/20-11/30/20 Next Note Type Next Note Type Treatment Note Referral Referring Physician FAITH Nick Reason for Referral hoarseness Setting Setting Outpatient Care Patient History General Information Pt was seen for a voice evaluation at the referral by , ENT. According to the pt, he was diagnosed with Parkinson's Disease in 2010. He has noticed that others he talks to, including well as his , continue to mention that he needs to speak louder. Initially upon entering the treatment room, the pt was stating that he did not feel that he needed therapy as all (he) needs to do is talk louder. Occupational Status Occupation Status self employed - online store Previous Therapy Previous Speech-Language Therapy No Oral Motor Assessment Source: [place] ([employer]). Oral-Motor Eval Completed Informal observation Subjective Subjective Pt appeared confused and frustrated as to why he was at the appointment. Education regarding speech therapy benefits for PD were described for the pt, which appeared to calm his affect overall. - Laryngeal Performance S/Z Ratio S/Z Ratio .009 Functional for Speech No: Pt not able to control airflow for unvoiced phoneme Reduced Laryngeal Function Relative to Yes: Pt's voice is very Respiration breathy; frequent inhalations noted Maximum Phonation Time MPT Norms: Women (15-25) Men (25-35) Loudness (50-60 dB); Speaking Rate: Oral Reading of Sentences (190 Words Per Minute); Oral Reading of Paragraphs (160-170 WPM); Speaking Rate in Conversation (150-250 WPM) Maximum Phonation Time 20.8 Maximum Phonation Time Adequate for Speech Jitter/Shimmer Norms: Jitter (Less than or equal to 1.040% - Frequency) Norms: Shimmer (Less than or equal to 3.810% - Amplitude) Jitter 1.8% Shimmer 8.4% Pitch Llewellyn Pitch Llewellyn Pitch Breaks,Reduced Range, Cessation of Voicing Muscle Tension Assessment Muscle Tension Assessment Neck,Shoulders Muscle Tension Assessment Comments Pt was working hard to produce adequate loudness during conversation Breath Support Breath Support At Rest Abdominal Breath Support Sustained Phonation Abdominal Breath Support Conversation Mixed Breath Support Conversation Comment Pt reports medical hx of asthma and COPD Speaks on Room Air Yes Postural Alignment Stance Slumped Neck Free and Loose Voice Pitch Range Norms: Women (100-300 Hz) Men (70-250 Hz) Fundamental Frequency Norms: Women (Mean: 225 Hz; Range: 155-334 Hz) Men ( Mean: 128 Hz; Range: 85-196 Hz) Voice Pitch Normal Voice Loudness Mildly Soft/Quiet Voice Phonatory-based Quality Breathy,Hoarse,Tremor,Weak, Loss of Voice,Pitch Breaks Fundamental Frequency 137 Hz Paradoxical Vocal Fold Movement No Indications Resonance Nasal Resonance Normal Oral Resonance Normal Other Observations Inadequate Breath Support Therapeutic Techniques Therapy Tactics Breath Support,Increase Loudness Other Tactics Referral to LSVT LOUD therapy program Findings Findings Mild-Moderate Impairment Voice/Resonance Assessment Assessment Pt presented with hoarse, breathy vocal quality secondary to PD. 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 Vocal assessment results indicated reduced air support for speaking, diminished vocal quality and reduced loudness when speaking in a calm conversation. Vocal therapy is recommended. LSVT LOUD therapy is specifically recommended to increase diaphragmatic control and loudness of voicing . Prognosis Rehabilitation Potential Excellent - Recommendations Treatment Recommended Yes Treatment Frequency/Duration 4x/week x 4 weeks per [facility] protocol Short Term Goals Pt will participate in [facility] therapy program as prescribed. Patient/Caregiver Education Patient/Family Education Described results of evaluation,Patient Understanding,Patient Needs More Info
--- NOTE | 2020-08-31 13:01 | ST.OPPOC ---
Physical, Occupational & Speech Therapy At [facility] Visit Care Team Role Provider Type Alfredo Du MD Family Provider Physician Primary Care Provider Address: [address], [place], [address] Tao Bonilla MD Attending Provider Physician Referring Provider Address: [address] [place] [address], [address] Speech Pathology Plan of Care General Information Pt was seen for a voice evaluation at the referral by , ENT. According to the pt , he was diagnosed with Parkinson's Disease in 2010. He has noticed that others he talks to, including well as his , continue to mention that he needs to speak louder. Initially upon entering the treatment room, the pt was stating that he did not feel that he needed therapy as all (he) needs to do is talk louder. Plan of Care Dates 08/31/20-11/30/20 Electronically Signed by: MYRTLE Chacon 08/31/20 1302 Please Sign and Return: I have reviewed this Plan of Care and certify that the skilled therapy services above are required to meet the patient?s needs. Physician Signature Date Printed Name and Credentials Clinical Instructor Signature Printed Name and Credentials
--- NOTE | 2020-12-22 17:15 | ST.OPDS ---
Visit Care Team Role Provider Type Alfredo Du MD Family Provider Physician Primary Care Provider Address: [address] [place] [address], [place], [address] Tao Bonilla MD Attending Provider Physician Referring Provider Address: [address] [place] [address], [address] CLEANING ATTENDANT Treatment Note CLEANING ATTENDANT Treatment Note Start: 08/31/20 09:14 Freq: Status: Active Protocol: Document 12/22/20 17:12 LNK (Rec: 12/22/20 17:14 LNK [id number]) Speech Pathology Treatment Note Visit Type Note Type Discharge Summary General Information General Information Pt was seen for a voice evaluation at the referral by , ENT. According to the pt, he was diagnosed with Parkinson's Disease in 2010. He has noticed that others he talks to, including well as his , continue to mention that he needs to speak louder. Initially upon entering the treatment room, the pt was stating that he did not feel that he needed therapy as all (he) needs to do is talk louder. Pt presented with hoarse, breathy vocal quality secondary to PD. 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 Vocal assessment results indicated reduced air support for speaking, diminished vocal quality and reduced loudness when speaking in a calm conversation. Vocal therapy is recommended. LSVT LOUD therapy is specifically recommended to increase diaphragmatic control and loudness of voicing . [ End ] Assessment Progress Towards Goals Appropriate for Discharge Assessment of Improvement Pt did not return to this clinic following the initial evaluation. Will discharge at this time Plan Therapy Recommendations Discharge from Speech Therapy
== END 2020-12-26 09:11 | disposition home or self-care (01) ==
LOC: SP 09:20
PROVIDERS: Family Provider Family Medicine; PCP Family Medicine; Referring Provider Otolaryngology; Visit Provider Otolaryngology
DX: R49.0 Dysphonia (principal)
CPT/HCPCS: 92520; 92524

== ENCOUNTER → 2020-10-28 16:57 | Outpatient (CLI) | payer MEDICARE, OTHER, SELFPAY ==
[2020-01-20 11:37] VITALS: BMI 23.9
--- NOTE | 2020-10-28 17:02 | DI.RAD.S_ITS ---
PROCEDURE: XR HIP W PEL IF DONE LT 2V INDICATIONS: LEFT HIP PAIN TECHNIQUE: AP pelvis with lateral view(s) of the left hip(s). COMPARISON: None. FINDINGS: Bones: No fractures or dislocations. Pelvic ring appears intact. No suspicious bony lesions. Soft tissues: The visualized bowel gas pattern is normal. No suspicious soft tissue calcifications. IMPRESSION: No trauma found. 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 Equivalent mild degenerative change on right. Dictated by: Josiah Ricks M.D. on 10/28/2020 at 17:54 Approved by: Josiah Ricks M.D. on 10/28/2020 at 17:55
== END ==
PROVIDERS: Family Provider Family Medicine; PCP Family Medicine; Referring Provider Family Medicine; Visit Provider Family Medicine
DX: M25.552 Pain in left hip (principal); M16.0 Bilateral primary osteoarthritis of hip
CPT/HCPCS: 73502

== ENCOUNTER 2021-05-25 08:30 | Outpatient (RCR) | payer MEDICARE, OTHER, SELFPAY ==
[2020-01-20 11:37] VITALS: BMI 23.9
--- NOTE | 2021-04-18 16:25 | ST.OPIE ---
Visit Care Team Role Provider Type Alfredo Du MD Family Provider Physician Primary Care Provider Specialty: Family Practice Address: [address] [place] [address] [place], [address] Email: [email or web address] Tao Bonilla MD Attending Provider Physician Referring Provider Specialty: Ear, Nose, Throat Address: [address] [place] [address], [id number] Email: [email or web address] Speech-Language Pathology Initial Evaluation [facility]ATHER Voice Resonance Evaluation Start: 04/18/21 14:56 Freq: Status: Active Protocol: Document 04/18/21 14:57 LETY (Rec: 04/18/21 16:25 LETY [email or web address]) Voice and Resonance Assessment Session Time Visit Start Time 10:30 Visit Stop Time 11:30 Total Visit Minutes 60 Visit Information Visit Number Initial Evaluation Plan of Care Dates 04/18/21 - 07/17/21 Insurance Information Medicare Next Note Type Next Note Type Treatment Note Referral Referring Physician Dr. Tao Bonilla Reason for Referral Parkinson's disease; Dysphonia Setting Setting Outpatient Care Patient History General Information The pt is a 75-yr-old male who was diagnosed with Parkinson's disease Dec 2009 but with initial symptoms (primarily essential tremor) appearing in 2017. He reports others, including his , frequently ask him to repeat himself because his voice is quiet and he mumbles, and he stated that this bothers him to the point that he sometimes responds angrily. He stated that he has always been relatively soft spoken but that his current loudness levels sound normal or louder than normal to him. He recently underwent neuropsychological testing, both when taking and when not taking medication. He stated that he passed pretty well. In April, he has an appointment to pursue Focused Ultrasound treatment to assist with tremor, which was consistently noticeable in right arm and hand and occasionally noticeable in his right leg during this evaluation. The pt lives [place] his [place] with his . He is actively involved with the local [employer] and has been athletic all his life, particularly skiing and swimming. 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 Previous Therapy Previous Speech-Language Therapy No Subjective Subjective The pt arrived on time and provided case history. He was minimally aware of LSVT-Loud program and, once explained in greater detail, agreeable with the program. - Laryngeal Performance CAPE-V Overall Severity 29% Moderate Roughness 5% in conversation; 14% in sustained phonation (Mild) Breathiness WNL Strain 3% in convers.; 23% in sustained phonation & w/ incr loudness (Mild-Mod) Pitch 5% (Mild), reduced control and decreased vocal quality at extremes Loudness 33% (Moderate) Normal Resonance? Yes Maximum Phonation Time MPT Norms: Women (15-25) Men (25-35) Loudness (50-60 dB); Speaking Rate: Oral Reading of Sentences (190 Words Per Minute); Oral Reading of Paragraphs (160-170 WPM); Speaking Rate in Conversation (150-250 WPM) Maximum Phonation Time 23.7 sec at normal loudness ( 71 dB, avg) Maximum Phonation Time Adequate for Speech Maximum Phonation Time Comments 22.5 sec with increased loudness (to 74 dB, avg) Jitter/Shimmer Norms: Jitter (Less than or equal to 1.040% - Frequency) Norms: Shimmer (Less than or equal to 3.810% - Amplitude) Jitter 0.19% Shimmer 2.40% Pitch Ferguson Pitch Ferguson WNL Pitch Ferguson Comments 103-215 Hz, reduced control; vocal strain at higher pitches Breath Support Speaks on Room Air Yes Voice Pitch Range Norms: Women (100-300 Hz) Men (70-250 Hz) Fundamental Frequency Norms: Women (Mean: 225 Hz; Range: 155-334 Hz) Men ( Mean: 128 Hz; Range: 85-196 Hz) Fundamental Frequency 133 Hz (WNL) Intensity 67 dB in conversation; 71 dB in reading task Paradoxical Vocal Fold Movement No Indications Resonance Nasal Resonance Normal Oral Resonance Normal Therapeutic Techniques Therapy Tactics Increase Loudness Findings Findings Mild-Moderate Impairment Voice/Resonance Assessment Assessment The pt presents with mild- moderate dysphonia characterized by moderate vocal roughness, increased strain with increased loudness, and reduced loudness. The pt also presents with mild hypokinetic dysarthria characterized by mildly increased rate of speech, imprecise articulation, and, again, reduced vocal loudness. Both dysphonia and dysarthria reduce that pt's speech intelligibility, with was ~95% with mild effort on the part of the listener. The pt is an excellent candidate for LSVT- Loud. Prognosis Rehabilitation Potential Excellent - Recommendations Treatment Recommended Yes Treatment Frequency/Duration 16 visits in 4 wks, per LSVT- Loud protocol Therapy Recommendations LSVT-Loud Short Term Goals 1. Pt will sustain phonation for 25 seconds with good quality voice at avg 80 dB to increase breath support for speech and vocal quality. 2. Pt will produce pitch range WFL with good quality voice at avg 80 dB to increase prosody in speech and improve vocal quality. 3. Pt will read functional phrases with good quality voice at avg 71 dB to improve/ maintain speech intelligibility and promote carryover of good voicing in functional communication opportunities. 4. Pt will produce structured speech tasks increasing in length and complexity over course of treatment with good voicing at normal conversational levels (65-75 dB) to increase endurance of good quality voice and breath support for functional conversation opportunities. Health Worker Goals 1. The pt will perform structured voice tasks (e.g., sustained phonation, pitch range, reading tasks) with voicing, including loudness levels, WNL to increase speech intelligibility and good quality voice. 2. The pt will produce spontaneous conversation with multiple conversation partners and in a variety of environments with loudness levels and vocal quality WNL in 80% of opportunities to increase speech intelligibility and maintain communicative independence and quality of life. 3. The pt will demonstrate independence with HEP to promote carryover of tx results to functional conversation tasks and maintain speech intelligibility and good quality voice in presence of a progressive disease. Patient/Caregiver Education Patient/Family Education Described results of evaluation,Patient Understanding
--- NOTE | 2021-04-24 17:15 | ST.OPTN ---
Visit Care Team Role Provider Type Alfredo Du MD Family Provider Physician Primary Care Provider Address: [address] [place] [address], [address], [place], [address] Tao Bonilla MD Attending Provider Physician Referring Provider Address: [address] [place] [address], [id number] EPIC WILLOW SPECIALIST Treatment Note EPIC WILLOW SPECIALIST Treatment Note Start: 04/18/21 14:56 Freq: Status: Active Protocol: Document 04/24/21 16:55 LETY (Rec: 04/24/21 16:57 LETY [email or web address]) Speech Pathology Treatment Note Session Time Visit Start Time 14:30 Visit Stop Time 15:30 Total Visit Minutes 60 Visit Information Visit Number 06/04 Plan of Care Dates 04/18/21 - 07/17/21 Insurance Information Medicare Setting Treatment Setting Outpatient Care Visit Type Note Type Treatment Note Next Note Type Next Note Type Treatment Note General Information General Information The pt is a 75-yr-old male who was diagnosed with Parkinson' s disease Dec 2009 but with initial symptoms (primarily essential tremor) appearing in 2017. He reports others, including his , frequently ask him to repeat himself because his voice is quiet and he mumbles, and he stated that this bothers him to the point that he sometimes responds angrily. He stated that he has always been relatively soft spoken but that his current loudness levels sound normal or louder than normal to him. He recently underwent neuropsychological testing, both when taking and when not taking medication. He stated that he passed pretty well. In April, he has an appointment to pursue Focused Ultrasound treatment to assist with tremor, which was consistently noticeable in right arm and hand and occasionally noticeable in his right leg during this evaluation. The pt lives on his [place] with his . He is actively involved with the local [employer] club and has been athletic all his life, particularly skiing and swimming. 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 Subjective Others Present Additional Therapist Observations/Patient Presentation The pt arrived on time. No new complaints. He reported having been with friends over the weekend who continue to tell me to speak up. I said I felt like I was shouting, and they said, 'Shout louder.' It sometimes makes me a little mad. EPIC WILLOW SPECIALIST Junaid Felipe was present for observation and training in LSVT-Loud, with the pt's permission. Chief Complaint(s) Voice Objective Short Term Goals 1. Pt will sustain phonation for 25 seconds with good quality voice at avg 80 dB to increase breath support for speech and vocal quality. 2. Pt will produce pitch range WFL with good quality voice at avg 80 dB to increase prosody in speech and improve vocal quality. 3. Pt will read functional phrases with good quality voice at avg 71 dB to improve/ maintain speech intelligibility and promote carryover of good voicing in functional communication opportunities. 4. Pt will produce structured speech tasks increasing in length and complexity over course of treatment with good voicing at normal conversational levels (65-75 dB) to increase endurance of good quality voice and breath support for functional conversation opportunities. Thermoscrew Operator Goals 1. The pt will perform structured voice tasks (e.g., sustained phonation, pitch range, reading tasks) with voicing, including loudness levels, WNL to increase speech intelligibility and good quality voice. 2. The pt will produce spontaneous conversation with multiple conversation partners and in a variety of environments with loudness levels and vocal quality WNL in 80% of opportunities to increase speech intelligibility and maintain communicative independence and quality of life. 3. The pt will demonstrate independence with HEP to promote carryover of tx results to functional conversation tasks and maintain speech intelligibility and good quality voice in presence of a progressive disease. Treatment Activities Initiated training of LSVT- Loud treatment tasks. The pt completed the following: MPT = 17.7 w/ avg loudness of 77 dB. Range: 13.5-17.7 Increased vocal strain over duration of task, which was ended to protect pt voice. Pitch Range: Highs, avg 70 dB; Lows, avg 70.8 dB. Trained pt in yawn/sigh technique to reduce vocal strain and reduced loudness demands to reduce laryngeal tension and protect VFs. Functional Phrases: Collaborated w/ pt to complete list of 10 phrases. Pt read sentences with avg loudness of 78.5 dB Carryover Assignment: Pt verbalized intention to greet his with targeted loudness upon arrival home. Since the pt was seen late in the day and he reported vocal fatigue at the end of the session, as well as increased vocal strain during tasks, he was advised not to complete home practice today but will initiate tomorrow. Pt verbalized understanding. Assessment Patient Response to Treatment Good Rehab Potential Excellent Impairments Identified Speech Intelligibility,Vocal Quality Progress Towards Goals Good Progress Assessment of Overall Progress Improving Assessment of Improvement The pt was responsive to all training and prompts. Demonstrated ability to generate loudness >WNL. Reported vocal fatigue by end of the session. Vocal loudness in structured tasks met or exceeded goals. Loudness dropped to below normal levels in [id number] remarks but mostly remained WNL in spontaneous conversation, particularly as the session progressed, demonstrating responsiveness to training and increasing awareness. Reviewed with Patient Goals,Progress Being Made,Home Exercise Program Patient/Caregiver Understanding Good Plan Amount of Therapy Recommended 1-2 Months Frequency of Treatment Four Times a Week Length of Session 60 Minutes Therapeutic Contents Client Education,Home Exercise Program,Voice Training Provided Patient/Caregiver Instruction Home Exercise Program,Plan of Care,Questions/Concerns Therapy Recommendations Continue with Current Program
--- NOTE | 2021-04-25 17:14 | ST.OPTN ---
Visit Care Team Role Provider Type Alfredo Du MD Family Provider Physician Primary Care Provider Address: [address] [place] [address], [address], [place], [address] Tao Bonilla MD Attending Provider Physician Referring Provider Address: [address] [place] [address], [id number] BUSINESS ANALYST CONSULTANT Treatment Note BUSINESS ANALYST CONSULTANT Treatment Note Start: 04/18/21 14:56 Freq: Status: Active Protocol: Document 04/25/21 17:01 LETY (Rec: 04/25/21 17:14 LETY [email or web address]) Speech Pathology Treatment Note Session Time Visit Start Time 10:30 Visit Stop Time 11:30 Total Visit Minutes 60 Visit Information Visit Number 07/05 Plan of Care Dates 04/18/21 - 07/17/21 Insurance Information Medicare Setting Treatment Setting Outpatient Care Visit Type Note Type Treatment Note Next Note Type Next Note Type Treatment Note General Information General Information The pt is a 75-yr-old male who was diagnosed with Parkinson' s disease Dec 2009 but with initial symptoms (primarily essential tremor) appearing in 2017. He reports others, including his , frequently ask him to repeat himself because his voice is quiet and he mumbles, and he stated that this bothers him to the point that he sometimes responds angrily. He stated that he has always been relatively soft spoken but that his current loudness levels sound normal or louder than normal to him. He recently underwent neuropsychological testing, both when taking and when not taking medication. He stated that he passed pretty well. In April, he has an appointment to pursue Focused Ultrasound treatment to assist with tremor, which was consistently noticeable in right arm and hand and occasionally noticeable in his right leg during this evaluation. The pt lives [place] his [place] with his . He is actively involved with the local [employer] club and has been athletic all his life, particularly skiing and swimming. 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 Subjective Others Present Additional Therapist Observations/Patient Presentation The pt arrived on time. No new complaints. BUSINESS ANALYST CONSULTANT Junaid Felipe was present for observation and training in LSVT-Loud, with the pt's permission. Chief Complaint(s) Voice Objective Short Term Goals 1. Pt will sustain phonation for 25 seconds with good quality voice at avg 80 dB to increase breath support for speech and vocal quality. 2. Pt will produce pitch range WFL with good quality voice at avg 80 dB to increase prosody in speech and improve vocal quality. 3. Pt will read functional phrases with good quality voice at avg 71 dB to improve/ maintain speech intelligibility and promote carryover of good voicing in functional communication opportunities. 4. Pt will produce structured speech tasks increasing in length and complexity over course of treatment with good voicing at normal conversational levels (65-75 dB) to increase endurance of good quality voice and breath support for functional conversation opportunities. Manager Of Marketing Goals 1. The pt will perform structured voice tasks (e.g., sustained phonation, pitch range, reading tasks) with voicing, including loudness levels, WNL to increase speech intelligibility and good quality voice. 2. The pt will produce spontaneous conversation with multiple conversation partners and in a variety of environments with loudness levels and vocal quality WNL in 80% of opportunities to increase speech intelligibility and maintain communicative independence and quality of life. 3. The pt will demonstrate independence with HEP to promote carryover of tx results to functional conversation tasks and maintain speech intelligibility and good quality voice in presence of a progressive disease. Treatment Activities The pt completed the following : MPT = 24.1 w/ avg loudness of 78 dB across all trials. Range : 15.5-17.7 Reduced vocal strain as compared to yesterday; pt receptive to shaping via abdominal power and open throat. Demonstrated initial signs of independent control. Pitch Range: 129-325 Hz; Highs, avg 70 dB; Lows, avg 70.8 dB. Improved vocal quality. Functional Phrases: Modified phrases to better match the pt 's natural production. Pt read sentences with avg loudness of 78.25 dB Carryover Assignment: Pt verbalized intention to speak with his with targeted loudness upon arrival home. Conversation: avg 74 dB; range : 72-76 dB Assessment Patient Response to Treatment Good Rehab Potential Excellent Impairments Identified Speech Intelligibility,Vocal Quality Progress Towards Goals Good Progress Assessment of Overall Progress Improving Assessment of Improvement Good response to shaping of voice to reduce strain and control pitch and loudness. Pt discriminated between target and non-target vocal loudness and quality. Already shoeing good carryover into monitoring loudness in spontaneous speech. Reviewed with Patient Goals,Progress Being Made,Home Exercise Program Patient/Caregiver Understanding Good Plan Amount of Therapy Recommended 1-2 Months Frequency of Treatment Four Times a Week Length of Session 60 Minutes Therapeutic Contents Client Education,Home Exercise Program,Voice Training Provided Patient/Caregiver Instruction Home Exercise Program,Plan of Care,Questions/Concerns Therapy Recommendations Continue with Current Program
--- NOTE | 2021-04-26 16:35 | ST.OPTN ---
Visit Care Team Role Provider Type Alfredo Du MD Family Provider Physician Primary Care Provider Address: [address] [place] [address], [place], [address] Tao Bonilla MD Attending Provider Physician Referring Provider Address: [address] [place] [address], [address] ELECTRONIC PREPRESS SYSTEM OPERATOR Treatment Note ELECTRONIC PREPRESS SYSTEM OPERATOR Treatment Note Start: 04/18/21 14:56 Freq: Status: Active Protocol: Document 04/26/21 18:12 LETY (Rec: 04/26/21 18:14 LETY [email or web address]) Speech Pathology Treatment Note Session Time Visit Start Time 08:30 Visit Stop Time 09:30 Total Visit Minutes 60 Visit Information Visit Number 08/02 Plan of Care Dates 04/18/21 - 07/17/21 Insurance Information Medicare Setting Treatment Setting Outpatient Care Visit Type Note Type Treatment Note Next Note Type Next Note Type Treatment Note General Information General Information The pt is a 75-yr-old male who was diagnosed with Parkinson' s disease Dec 2009 but with initial symptoms (primarily essential tremor) appearing in 2017. He reports others, including his , frequently ask him to repeat himself because his voice is quiet and he mumbles, and he stated that this bothers him to the point that he sometimes responds angrily. He stated that he has always been relatively soft spoken but that his current loudness levels sound normal or louder than normal to him. He recently underwent neuropsychological testing, both when taking and when not taking medication. He stated that he passed pretty well. In April, he has an appointment to pursue Focused Ultrasound treatment to assist with tremor, which was consistently noticeable in right arm and hand and occasionally noticeable in his right leg during this evaluation. The pt lives [place] his [place] with his . He is actively involved with the local [employer] club and has been athletic all his life, particularly skiing and swimming. 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 Subjective Observations/Patient Presentation The pt arrived on time. No new complaints. Pt completed practice at home yesterday after morning session. Chief Complaint(s) Voice Patient Knowledge/Awareness of ELECTRONIC PREPRESS SYSTEM OPERATOR Role Good in Treatment Patient/Caregiver Compliance with Home Good Exercise Program Objective Short Term Goals 1. Pt will sustain phonation for 25 seconds with good quality voice at avg 80 dB to increase breath support for speech and vocal quality. 2. Pt will produce pitch range WFL with good quality voice at avg 80 dB to increase prosody in speech and improve vocal quality. 3. Pt will read functional phrases with good quality voice at avg 71 dB to improve/ maintain speech intelligibility and promote carryover of good voicing in functional communication opportunities. 4. Pt will produce structured speech tasks increasing in length and complexity over course of treatment with good voicing at normal conversational levels (65-75 dB) to increase endurance of good quality voice and breath support for functional conversation opportunities. Mcfp Goals 1. The pt will perform structured voice tasks (e.g., sustained phonation, pitch range, reading tasks) with voicing, including loudness levels, WNL to increase speech intelligibility and good quality voice. 2. The pt will produce spontaneous conversation with multiple conversation partners and in a variety of environments with loudness levels and vocal quality WNL in 80% of opportunities to increase speech intelligibility and maintain communicative independence and quality of life. 3. The pt will demonstrate independence with HEP to promote carryover of tx results to functional conversation tasks and maintain speech intelligibility and good quality voice in presence of a progressive disease. Treatment Activities The pt completed the following : MPT = 18.3s, avg loudness of 76 dB across all trials. Range : 12.5-18.3 Pitch Range: 110-376 Hz; Highs, avg 72 dB; Lows, avg 72 dB. Functional Phrases: Avg 79.7 dB Words/Phrases: Avg 81 dB Conversation: avg 74.7 dB Carryover Assignment: Conversations with MDs tomorrow morning. Assessment Patient Response to Treatment Good Rehab Potential Excellent Impairments Identified Speech Intelligibility,Vocal Quality Progress Towards Goals Good Progress Assessment of Overall Progress Improving Assessment of Improvement The pt is making good progress toward goals. Demonstrating increased self-monitoring and correcting, both in loudness and strategies to clear vocal quality. Reviewed with Patient Goals,Progress Being Made,Home Exercise Program Patient/Caregiver Understanding Good Plan Amount of Therapy Recommended 1-2 Months Frequency of Treatment Four Times a Week Length of Session 60 Minutes Therapeutic Contents Client Education,Home Exercise Program,Voice Training Provided Patient/Caregiver Instruction Home Exercise Program,Plan of Care,Questions/Concerns Therapy Recommendations Continue with Current Program
--- NOTE | 2021-04-27 13:35 | ST.OPTN ---
Visit Care Team Role Provider Type Alfredo Du MD Family Provider Physician Primary Care Provider Address: [address] [place] [address], [place], [address] Tao Bonilla MD Attending Provider Physician Referring Provider Address: [address] [place] [address], [id number] AUTO RADIO MECHANIC Treatment Note AUTO RADIO MECHANIC Treatment Note Start: 04/18/21 14:56 Freq: Status: Active Protocol: Document 04/27/21 14:41 LETY (Rec: 04/27/21 14:42 LETY [email or web address]) Speech Pathology Treatment Note Session Time Visit Start Time 13:30 Visit Stop Time 14:30 Total Visit Minutes 60 Visit Information Visit Number 09/02 Plan of Care Dates 04/18/21 - 07/17/21 Insurance Information Medicare Setting Treatment Setting Outpatient Care Visit Type Note Type Treatment Note Next Note Type Next Note Type Treatment Note General Information General Information The pt is a 75-yr-old male who was diagnosed with Parkinson' s disease Dec 2009 but with initial symptoms (primarily essential tremor) appearing in 2017. He reports others, including his , frequently ask him to repeat himself because his voice is quiet and he mumbles, and he stated that this bothers him to the point that he sometimes responds angrily. He stated that he has always been relatively soft spoken but that his current loudness levels sound normal or louder than normal to him. He recently underwent neuropsychological testing, both when taking and when not taking medication. He stated that he passed pretty well. In April, he has an appointment to pursue Focused Ultrasound treatment to assist with tremor, which was consistently noticeable in right arm and hand and occasionally noticeable in his right leg during this evaluation. The pt [place] with his . He is actively involved with the local [employer] club and has been athletic all his life, particularly skiing and swimming. 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 Subjective Observations/Patient Presentation The pt arrived on time. No new complaints. Pt completed practice at home yesterday after morning session. Chief Complaint(s) Voice Patient Knowledge/Awareness of AUTO RADIO MECHANIC Role Good in Treatment Patient/Caregiver Compliance with Home Good Exercise Program Objective Short Term Goals 1. Pt will sustain phonation for 25 seconds with good quality voice at avg 80 dB to increase breath support for speech and vocal quality. 2. Pt will produce pitch range WFL with good quality voice at avg 80 dB to increase prosody in speech and improve vocal quality. 3. Pt will read functional phrases with good quality voice at avg 71 dB to improve/ maintain speech intelligibility and promote carryover of good voicing in functional communication opportunities. 4. Pt will produce structured speech tasks increasing in length and complexity over course of treatment with good voicing at normal conversational levels (65-75 dB) to increase endurance of good quality voice and breath support for functional conversation opportunities. [facility] Goals 1. The pt will perform structured voice tasks (e.g., sustained phonation, pitch range, reading tasks) with voicing, including loudness levels, WNL to increase speech intelligibility and good quality voice. 2. The pt will produce spontaneous conversation with multiple conversation partners and in a variety of environments with loudness levels and vocal quality WNL in 80% of opportunities to increase speech intelligibility and maintain communicative independence and quality of life. 3. The pt will demonstrate independence with HEP to promote carryover of tx results to functional conversation tasks and maintain speech intelligibility and good quality voice in presence of a progressive disease. Treatment Activities The pt completed the following : MPT = 11.8s, avg loudness of 77.1 dB across all trials. Range: 6.7-11.8s Pitch Range: 133-420 Hz; Highs, avg 71.6 dB; Lows, avg 68.8 dB. Functional Phrases: Avg 81 dB Words/Phrases: Avg 83 dB Conversation: avg 79.7 dB Assessment Patient Response to Treatment Good Rehab Potential Excellent Impairments Identified Speech Intelligibility,Vocal Quality Progress Towards Goals Good Progress Assessment of Overall Progress Improving Assessment of Improvement The pt is making good progress toward goals. Demonstrating increased self-monitoring and correcting, both in loudness and strategies to clear vocal quality. Increased conversational loudness observed today. Reviewed with Patient Goals,Progress Being Made,Home Exercise Program Patient/Caregiver Understanding Good Plan Amount of Therapy Recommended 1-2 Months Frequency of Treatment Four Times a Week Length of Session 60 Minutes Treatment Emphasis Next Session Progress to sentence level reading tasks Therapeutic Contents Client Education,Home Exercise Program,Voice Training Provided Patient/Caregiver Instruction Home Exercise Program,Plan of Care,Questions/Concerns Therapy Recommendations Continue with Current Program
--- NOTE | 2021-05-01 16:31 | ST.OPTN ---
Visit Care Team Role Provider Type Alfredo Du MD Family Provider Physician Primary Care Provider Address: [address] [place] [address], [address], [place], [address] Tao Bonilla MD Attending Provider Physician Referring Provider Address: [address] [place] [address], [address] LOCK CORNER MACHINE OPERATOR Treatment Note LOCK CORNER MACHINE OPERATOR Treatment Note Start: 04/18/21 14:56 Freq: Status: Active Protocol: Document 05/01/21 16:23 LETY (Rec: 05/01/21 16:31 LETY [email or web address]) Speech Pathology Treatment Note Session Time Visit Start Time 13:30 Visit Stop Time 14:30 Total Visit Minutes 60 Visit Information Visit Number 10/02 Plan of Care Dates 04/18/21 - 07/17/21 Insurance Information Medicare Setting Treatment Setting Outpatient Care Visit Type Note Type Treatment Note Next Note Type Next Note Type Treatment Note General Information General Information The pt is a 75-yr-old male who was diagnosed with Parkinson' s disease Dec 2009 but with initial symptoms (primarily essential tremor) appearing in 2017. He reports others, including his , frequently ask him to repeat himself because his voice is quiet and he mumbles, and he stated that this bothers him to the point that he sometimes responds angrily. He stated that he has always been relatively soft spoken but that his current loudness levels sound normal or louder than normal to him. He recently underwent neuropsychological testing, both when taking and when not taking medication. He stated that he passed pretty well. In April, he has an appointment to pursue Focused Ultrasound treatment to assist with tremor, which was consistently noticeable in right arm and hand and occasionally noticeable in his right leg during this evaluation. The pt lives [place] his [place] with his . He is actively involved with the local [employer] and has been athletic all his life, particularly skiing and swimming. 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 Subjective Others Present Additional Therapist Observations/Patient Presentation The pt arrived on time. Pt reported having been at an event with many people and having several of them note ( unsolicited) that his loudness was better. He did not need to repeat himself as much as usual. He also reported not having completed exercises yesterday d/t sore throat from previous exercise. He completed tasks this morning without difficulty. LOCK CORNER MACHINE OPERATOR Junaid Felipe was present for observation and training in [employer], with the pt's permission. Chief Complaint(s) Voice Patient Knowledge/Awareness of LOCK CORNER MACHINE OPERATOR Role Good in Treatment Patient/Caregiver Compliance with Home Good Exercise Program Objective Short Term Goals 1. Pt will sustain phonation for 25 seconds with good quality voice at avg 80 dB to increase breath support for speech and vocal quality. 2. Pt will produce pitch range WFL with good quality voice at avg 80 dB to increase prosody in speech and improve vocal quality. 3. Pt will read functional phrases with good quality voice at avg 71 dB to improve/ maintain speech intelligibility and promote carryover of good voicing in functional communication opportunities. 4. Pt will produce structured speech tasks increasing in length and complexity over course of treatment with good voicing at normal conversational levels (65-75 dB) to increase endurance of good quality voice and breath support for functional conversation opportunities. [facility] Goals 1. The pt will perform structured voice tasks (e.g., sustained phonation, pitch range, reading tasks) with voicing, including loudness levels, WNL to increase speech intelligibility and good quality voice. 2. The pt will produce spontaneous conversation with multiple conversation partners and in a variety of environments with loudness levels and vocal quality WNL in 80% of opportunities to increase speech intelligibility and maintain communicative independence and quality of life. 3. The pt will demonstrate independence with HEP to promote carryover of tx results to functional conversation tasks and maintain speech intelligibility and good quality voice in presence of a progressive disease. Treatment Activities The pt completed the following : MPT = 16.3.s, avg loudness of 79.2 dB across all trials. Range: 12.7-16.3s Pitch Range: 120-278 Hz; Highs, avg 72 dB; Lows, avg 70.9 dB. Functional Phrases: Avg 78 dB Sentences: Avg 77 dB Conversation: avg 71.3 dB Assessment Patient Response to Treatment Good Rehab Potential Excellent Impairments Identified Speech Intelligibility,Vocal Quality Progress Towards Goals Good Progress Assessment of Overall Progress Improving Assessment of Improvement The pt continues to make good progress toward goals. Responsive to vocal shaping with instructions for open throat and to push from diaphragm/abdominal muscles to reduce laryngeal tension and vocal strain. Pt is getting good feedback from friends that voice is improving, and he is having to repeat himself less in conversations. Reviewed with Patient Goals,Progress Being Made,Home Exercise Program Patient/Caregiver Understanding Good Plan Amount of Therapy Recommended 1-2 Months Frequency of Treatment Four Times a Week Length of Session 60 Minutes Treatment Emphasis Next Session Cont sentence level reading tasks Therapeutic Contents Client Education,Home Exercise Program,Voice Training Provided Patient/Caregiver Instruction Home Exercise Program,Plan of Care,Questions/Concerns Therapy Recommendations Continue with Current Program
--- NOTE | 2021-05-02 16:02 | ST.OPTN ---
Visit Care Team Role Provider Type Alrfedo Du MD Family Provider Physician Primary Care Provider Address: [address] [place] [address], [address], [place], [address] Tao Bonilla MD Attending Provider Physician Referring Provider Address: [address] [place] [address], [address] BODS DEVELOPER Treatment Note BODS DEVELOPER Treatment Note Start: 04/18/21 14:56 Freq: Status: Active Protocol: Document 05/02/21 16:00 LETY (Rec: 05/02/21 16:02 LETY [id number]) Speech Pathology Treatment Note Session Time Visit Start Time 10:30 Visit Stop Time 11:30 Total Visit Minutes 60 Visit Information Visit Number 11/02 Plan of Care Dates 04/18/21 - 07/17/21 Insurance Information Medicare Setting Treatment Setting Outpatient Care Visit Type Note Type Treatment Note Next Note Type Next Note Type Treatment Note General Information General Information The pt is a 75-yr-old male who was diagnosed with Parkinson' s disease Dec 2009 but with initial symptoms (primarily essential tremor) appearing in 2017. He reports others, including his , frequently ask him to repeat himself because his voice is quiet and he mumbles, and he stated that this bothers him to the point that he sometimes responds angrily. He stated that he has always been relatively soft spoken but that his current loudness levels sound normal or louder than normal to him. He recently underwent neuropsychological testing, both when taking and when not taking medication. He stated that he passed pretty well. In April, he has an appointment to pursue Focused Ultrasound treatment to assist with tremor, which was consistently noticeable in right arm and hand and occasionally noticeable in his right leg during this evaluation. The pt lives [place] his [place] with his . He is actively involved with the local [employer] club and has been athletic all his life, particularly skiing and swimming. 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 Subjective Others Present Additional Therapist Observations/Patient Presentation The pt arrived on time. No new complaints. BODS DEVELOPER Junaid Felipe was present for observation and training in [employer], with the pt's permission. Chief Complaint(s) Voice Patient Knowledge/Awareness of BODS DEVELOPER Role Good in Treatment Patient/Caregiver Compliance with Home Good Exercise Program Objective Short Term Goals 1. Pt will sustain phonation for 25 seconds with good quality voice at avg 80 dB to increase breath support for speech and vocal quality. 2. Pt will produce pitch range WFL with good quality voice at avg 80 dB to increase prosody in speech and improve vocal quality. 3. Pt will read functional phrases with good quality voice at avg 71 dB to improve/ maintain speech intelligibility and promote carryover of good voicing in functional communication opportunities. 4. Pt will produce structured speech tasks increasing in length and complexity over course of treatment with good voicing at normal conversational levels (65-75 dB) to increase endurance of good quality voice and breath support for functional conversation opportunities. [facility] Goals 1. The pt will perform structured voice tasks (e.g., sustained phonation, pitch range, reading tasks) with voicing, including loudness levels, WNL to increase speech intelligibility and good quality voice. 2. The pt will produce spontaneous conversation with multiple conversation partners and in a variety of environments with loudness levels and vocal quality WNL in 80% of opportunities to increase speech intelligibility and maintain communicative independence and quality of life. 3. The pt will demonstrate independence with HEP to promote carryover of tx results to functional conversation tasks and maintain speech intelligibility and good quality voice in presence of a progressive disease. Treatment Activities The pt completed the following : MPT = 16.8.s, avg loudness of 77 dB across all trials. Range : 12.1-16.8s Pitch Range: 130-409 Hz; Highs, avg 72.8 dB; Lows, avg 71.7 dB. Functional Phrases: Avg 78 dB Sentences: Avg 78 dB Conversation: avg 72.5 dB Assessment Patient Response to Treatment Good Rehab Potential Excellent Impairments Identified Speech Intelligibility,Vocal Quality Progress Towards Goals Good Progress Assessment of Overall Progress Improving Assessment of Improvement The pt continues to make good progress toward goals, self- monitoring and -correcting voice well. Reviewed with Patient Goals,Progress Being Made,Home Exercise Program Patient/Caregiver Understanding Good Plan Amount of Therapy Recommended 1-2 Months Frequency of Treatment Four Times a Week Length of Session 60 Minutes Treatment Emphasis Next Session Cont sentence level reading tasks Therapeutic Contents Client Education,Home Exercise Program,Voice Training Provided Patient/Caregiver Instruction Home Exercise Program,Plan of Care,Questions/Concerns Therapy Recommendations Continue with Current Program
--- NOTE | 2021-05-03 09:53 | ST.OPTN ---
Visit Care Team Role Provider Type Alfredo Du MD Family Provider Physician Primary Care Provider Address: [address] [place] [address], [address], [place], [address] Tao Bonilla MD Attending Provider Physician Referring Provider Address: [address] [place] [address], [address] GLUE LINE OPERATOR Treatment Note GLUE LINE OPERATOR Treatment Note Start: 04/18/21 14:56 Freq: Status: Active Protocol: Document 05/03/21 09:40 LETY (Rec: 05/03/21 09:53 LETY [email or web address]) Speech Pathology Treatment Note Session Time Visit Start Time 08:30 Visit Stop Time 09:30 Total Visit Minutes 60 Visit Information Visit Number 12/02 Plan of Care Dates 04/18/21 - 07/17/21 Insurance Information Medicare Setting Treatment Setting Outpatient Care Visit Type Note Type Treatment Note Next Note Type Next Note Type Treatment Note General Information General Information The pt is a 75-yr-old male who was diagnosed with Parkinson' s disease Dec 2009 but with initial symptoms (primarily essential tremor) appearing in 2017. He reports others, including his , frequently ask him to repeat himself because his voice is quiet and he mumbles, and he stated that this bothers him to the point that he sometimes responds angrily. He stated that he has always been relatively soft spoken but that his current loudness levels sound normal or louder than normal to him. He recently underwent neuropsychological testing, both when taking and when not taking medication. He stated that he passed pretty well. In April, he has an appointment to pursue Focused Ultrasound treatment to assist with tremor, which was consistently noticeable in right arm and hand and occasionally noticeable in his right leg during this evaluation. The pt lives [place] with his . He is actively involved with the local [employer] club and has been athletic all his life, particularly skiing and swimming. 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 Subjective Observations/Patient Presentation The pt arrived on time. No new complaints. Pt reported unable to sustain phonation as long during home practice as he does in session, though he does not time himself at home. Chief Complaint(s) Voice Patient Knowledge/Awareness of GLUE LINE OPERATOR Role Good in Treatment Patient/Caregiver Compliance with Home Good Exercise Program Objective Short Term Goals 1. Pt will sustain phonation for 25 seconds with good quality voice at avg 80 dB to increase breath support for speech and vocal quality. 2. Pt will produce pitch range WFL with good quality voice at avg 80 dB to increase prosody in speech and improve vocal quality. 3. Pt will read functional phrases with good quality voice at avg 71 dB to improve/ maintain speech intelligibility and promote carryover of good voicing in functional communication opportunities. 4. Pt will produce structured speech tasks increasing in length and complexity over course of treatment with good voicing at normal conversational levels (65-75 dB) to increase endurance of good quality voice and breath support for functional conversation opportunities. Diagnostic Imaging Manager Goals 1. The pt will perform structured voice tasks (e.g., sustained phonation, pitch range, reading tasks) with voicing, including loudness levels, WNL to increase speech intelligibility and good quality voice. 2. The pt will produce spontaneous conversation with multiple conversation partners and in a variety of environments with loudness levels and vocal quality WNL in 80% of opportunities to increase speech intelligibility and maintain communicative independence and quality of life. 3. The pt will demonstrate independence with HEP to promote carryover of tx results to functional conversation tasks and maintain speech intelligibility and good quality voice in presence of a progressive disease. Treatment Activities The pt completed the following : MPT = 11.1.s, avg loudness of 78.5 dB across all trials. Range: 9.1-16.8s Pitch Range: 131-406 Hz; Highs, avg 76.6 dB; Lows, avg 78.6 dB. Functional Phrases: Avg 70.7 dB Sentences: Avg 71 dB Conversation: avg 70 dB Assessment Patient Response to Treatment Good Rehab Potential Excellent Impairments Identified Speech Intelligibility,Vocal Quality Progress Towards Goals Good Progress Assessment of Overall Progress Improving Assessment of Improvement The pt continues to make good progress toward goals, self- monitoring and -correcting voice well. Mildly decreasing length of sustained phonation but with improved vocal quality and consistent target loudness. Reviewed with Patient Goals,Progress Being Made,Home Exercise Program Patient/Caregiver Understanding Good Plan Amount of Therapy Recommended 1-2 Months Frequency of Treatment Four Times a Week Length of Session 60 Minutes Treatment Emphasis Next Session Cont sentence level reading tasks Therapeutic Contents Client Education,Home Exercise Program,Voice Training Provided Patient/Caregiver Instruction Home Exercise Program,Plan of Care,Questions/Concerns Therapy Recommendations Continue with Current Program
--- NOTE | 2021-05-04 10:15 | ST.OPTN ---
Visit Care Team Role Provider Type Alfredo Du MD Family Provider Physician Primary Care Provider Address: [address] [place] [address], [place], [address] Tao Bonilla MD Attending Provider Physician Referring Provider Address: [address] [place] [address], [id number] ONION TOPPER Treatment Note ONION TOPPER Treatment Note Start: 04/18/21 14:56 Freq: Status: Active Protocol: Document 05/04/21 10:02 LETY (Rec: 05/04/21 10:15 LETY [email or web address]) Speech Pathology Treatment Note Session Time Visit Start Time 08:50 Visit Stop Time 09:50 Total Visit Minutes 60 Visit Information Visit Number 01/02 Plan of Care Dates 04/18/21 - 07/17/21 Insurance Information Medicare Setting Treatment Setting Outpatient Care Visit Type Note Type Treatment Note Next Note Type Next Note Type Treatment Note General Information General Information The pt is a 75-yr-old male who was diagnosed with Parkinson' s disease Dec 2009 but with initial symptoms (primarily essential tremor) appearing in 2017. He reports others, including his , frequently ask him to repeat himself because his voice is quiet and he mumbles, and he stated that this bothers him to the point that he sometimes responds angrily. He stated that he has always been relatively soft spoken but that his current loudness levels sound normal or louder than normal to him. He recently underwent neuropsychological testing, both when taking and when not taking medication. He stated that he passed pretty well. In April, he has an appointment to pursue Focused Ultrasound treatment to assist with tremor, which was consistently noticeable in right arm and hand and occasionally noticeable in his right leg during this evaluation. The pt [place] with his . He is actively involved with the local [employer] and has been athletic all his life, particularly skiing and swimming. 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 Subjective Observations/Patient Presentation The pt arrived late d/t a business emergency. No new complaints. Chief Complaint(s) Voice Patient Knowledge/Awareness of ONION TOPPER Role Good in Treatment Patient/Caregiver Compliance with Home Good Exercise Program Objective Short Term Goals 1. Pt will sustain phonation for 25 seconds with good quality voice at avg 80 dB to increase breath support for speech and vocal quality. 2. Pt will produce pitch range WFL with good quality voice at avg 80 dB to increase prosody in speech and improve vocal quality. 3. Pt will read functional phrases with good quality voice at avg 71 dB to improve/ maintain speech intelligibility and promote carryover of good voicing in functional communication opportunities. 4. Pt will produce structured speech tasks increasing in length and complexity over course of treatment with good voicing at normal conversational levels (65-75 dB) to increase endurance of good quality voice and breath support for functional conversation opportunities. Label Stitcher Goals 1. The pt will perform structured voice tasks (e.g., sustained phonation, pitch range, reading tasks) with voicing, including loudness levels, WNL to increase speech intelligibility and good quality voice. 2. The pt will produce spontaneous conversation with multiple conversation partners and in a variety of environments with loudness levels and vocal quality WNL in 80% of opportunities to increase speech intelligibility and maintain communicative independence and quality of life. 3. The pt will demonstrate independence with HEP to promote carryover of tx results to functional conversation tasks and maintain speech intelligibility and good quality voice in presence of a progressive disease. Treatment Activities Due to equipment malfunction, loudness was not instrumentally measured with all tasks; instead measured by perception and clinical judgment. The pt completed the following : MPT = 13.6.s, avg loudness of 78.5 dB across all trials. Range: 10.9-13.6s Pitch Range: 131-406 Hz; Highs, avg 76.6 dB; Lows, avg 78.6 dB. Functional Phrases, Sentences: Loudness perceived to be at target level consistently across 10 trials. Pt statement : I believe you that this is the right loudness. I read these last night this loud and my loved it. Conversation: Perceived to meet target loudness ~90% of opportunities, decreased in [id number] comments and initially at start of session. Mostly clear vocal quality throughout. Mildly increased roughness in conversation. Assessment Patient Response to Treatment Good Rehab Potential Excellent Impairments Identified Speech Intelligibility,Vocal Quality Progress Towards Goals Good Progress Assessment of Overall Progress Improving Assessment of Improvement The pt continues to make good progress toward goals, self- monitoring and -correcting voice well. Mildly decreasing length of sustained phonation but with improved vocal quality and consistent target loudness. Mildly increased vocal roughness in conversation. Target laryngeal relaxation in conversation. Pt exhibiting prosodic features WNL, mildly reduced facial expression. Target latter in wk 3. Reviewed with Patient Goals,Progress Being Made,Home Exercise Program Patient/Caregiver Understanding Good Plan Amount of Therapy Recommended 1-2 Months Frequency of Treatment Four Times a Week Length of Session 60 Minutes Treatment Emphasis Next Session Adv to para level rdg tasks; facial expression; relaxed larynx in conv. Therapeutic Contents Client Education,Home Exercise Program,Voice Training Provided Patient/Caregiver Instruction Home Exercise Program,Plan of Care,Questions/Concerns Therapy Recommendations Continue with Current Program
--- NOTE | 2021-05-08 17:15 | ST.OPTN ---
Visit Care Team Role Provider Type Alfredo Du MD Family Provider Physician Primary Care Provider Address: [address] [place] [address], [address], [place], [address] Tao Bonilla MD Attending Provider Physician Referring Provider Address: [address] [place] [address], [id number] PALS NURSE Treatment Note PALS NURSE Treatment Note Start: 04/18/21 14:56 Freq: Status: Active Protocol: Document 05/08/21 17:05 LETY (Rec: 05/08/21 17:15 LETY [email or web address]) Speech Pathology Treatment Note Session Time Visit Start Time 08:40 Visit Stop Time 09:30 Total Visit Minutes 50 Visit Information Visit Number 02/02 Plan of Care Dates 04/18/21 - 07/17/21 Insurance Information Medicare Setting Treatment Setting Outpatient Care Visit Type Note Type Treatment Note Next Note Type Next Note Type Progress Note General Information General Information The pt is a 75-yr-old male who was diagnosed with Parkinson' s disease Dec 2009 but with initial symptoms (primarily essential tremor) appearing in 2017. He reports others, including his , frequently ask him to repeat himself because his voice is quiet and he mumbles, and he stated that this bothers him to the point that he sometimes responds angrily. He stated that he has always been relatively soft spoken but that his current loudness levels sound normal or louder than normal to him. He recently underwent neuropsychological testing, both when taking and when not taking medication. He stated that he passed pretty well. In April, he has an appointment to pursue Focused Ultrasound treatment to assist with tremor, which was consistently noticeable in right arm and hand and occasionally noticeable in his right leg during this evaluation. The pt lives [place] his [place] with his . He is actively involved with the local [employer] club and has been athletic all his life, particularly skiing and swimming. 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 Subjective Observations/Patient Presentation The pt arrived late. He exhibited increased body tremors and bradykinesia, stating It's an off Parkinson 's day. Tremors improved mildly over the course of the session. Chief Complaint(s) Voice Patient Knowledge/Awareness of PALS NURSE Role Good in Treatment Patient/Caregiver Compliance with Home Good Exercise Program Objective Short Term Goals 1. Pt will sustain phonation for 25 seconds with good quality voice at avg 80 dB to increase breath support for speech and vocal quality. 2. Pt will produce pitch range WFL with good quality voice at avg 80 dB to increase prosody in speech and improve vocal quality. 3. Pt will read functional phrases with good quality voice at avg 71 dB to improve/ maintain speech intelligibility and promote carryover of good voicing in functional communication opportunities. 4. Pt will produce structured speech tasks increasing in length and complexity over course of treatment with good voicing at normal conversational levels (65-75 dB) to increase endurance of good quality voice and breath support for functional conversation opportunities. Press Officer Goals 1. The pt will perform structured voice tasks (e.g., sustained phonation, pitch range, reading tasks) with voicing, including loudness levels, WNL to increase speech intelligibility and good quality voice. 2. The pt will produce spontaneous conversation with multiple conversation partners and in a variety of environments with loudness levels and vocal quality WNL in 80% of opportunities to increase speech intelligibility and maintain communicative independence and quality of life. 3. The pt will demonstrate independence with HEP to promote carryover of tx results to functional conversation tasks and maintain speech intelligibility and good quality voice in presence of a progressive disease. Treatment Activities The pt completed the following : MPT = 19.s, avg loudness of 78 .1 dB across all trials. Range : 11.6-19s Pitch Range: 133-412 Hz; Highs, avg 74 dB; Lows, avg 71 dB. Functional Phrases, Sentences: Avg loudness 80 dB Paragraph reading: Pt read short stories (1 page) with avg loudness of 79 dB Conversation: Avg loudness 71 dB Mostly clear vocal quality throughout. Mildly increased roughness in conversation. Good vocal inflection with all tasks. Assessment Patient Response to Treatment Good Rehab Potential Excellent Impairments Identified Speech Intelligibility,Vocal Quality Progress Towards Goals Good Progress Assessment of Overall Progress Improving Assessment of Improvement Pt met target loudness levels in structured tasks with clear speech despite increased tremor and other PD symptoms. Loudness occasionally fell below target levels in conversation and [id number] remarks. There was a balance of the pt and PALS NURSE prompts to correct. Reviewed with Patient Goals,Progress Being Made,Home Exercise Program Patient/Caregiver Understanding Good Plan Amount of Therapy Recommended 1-2 Months Frequency of Treatment Four Times a Week Length of Session 60 Minutes Treatment Emphasis Next Session Cont para level rdg tasks; facial expression; relaxed larynx in conv. Therapeutic Contents Client Education,Home Exercise Program,Voice Training Provided Patient/Caregiver Instruction Home Exercise Program,Plan of Care,Questions/Concerns Therapy Recommendations Continue with Current Program
--- NOTE | 2021-05-09 14:51 | ST.OPTN ---
Visit Care Team Role Provider Type Alfredo Du MD Family Provider Physician Primary Care Provider Address: [address] [place] [address], [address], [place], [address] Tao Bonilla MD Attending Provider Physician Referring Provider Address: [address] [place] [address], [id number] COLOR STRIPPER Treatment Note COLOR STRIPPER Treatment Note Start: 04/18/21 14:56 Freq: Status: Active Protocol: Document 05/09/21 14:41 LETY (Rec: 05/09/21 14:51 LETY [email or web address]) Speech Pathology Treatment Note Session Time Visit Start Time 13:30 Visit Stop Time 14:30 Total Visit Minutes 60 Visit Information Visit Number 03/04 Plan of Care Dates 04/18/21 - 07/17/21 Insurance Information Medicare Setting Treatment Setting Outpatient Care Visit Type Note Type Progress Note Next Note Type Next Note Type Treatment Note General Information General Information The pt is a 75-yr-old male who was diagnosed with Parkinson' s disease Dec 2009 but with initial symptoms (primarily essential tremor) appearing in 2017. He reports others, including his , frequently ask him to repeat himself because his voice is quiet and he mumbles, and he stated that this bothers him to the point that he sometimes responds angrily. He stated that he has always been relatively soft spoken but that his current loudness levels sound normal or louder than normal to him. He recently underwent neuropsychological testing, both when taking and when not taking medication. He stated that he passed pretty well. In April, he has an appointment to pursue Focused Ultrasound treatment to assist with tremor, which was consistently noticeable in right arm and hand and occasionally noticeable in his right leg during this evaluation. The pt lives [place] his [place] with his . He is actively involved with the local [employer] and has been athletic all his life, particularly skiing and swimming. 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 Subjective Observations/Patient Presentation The pt arrived on time. No new complaints. Pt has been compliant with HEP. Noted difficulty remembering to be loud at home. is still asking him to repeat himself but less than at [facility]. Others are asking him less to repeat himself and some commenting that his voice is improved. Chief Complaint(s) Voice Patient Knowledge/Awareness of COLOR STRIPPER Role Good in Treatment Patient/Caregiver Compliance with Home Good Exercise Program Objective Short Term Goals 1. Pt will sustain phonation for 25 seconds with good quality voice at avg 80 dB to increase breath support for speech and vocal quality. 2. Pt will produce pitch range WFL with good quality voice at avg 80 dB to increase prosody in speech and improve vocal quality. 3. Pt will read functional phrases with good quality voice at avg 71 dB to improve/ maintain speech intelligibility and promote carryover of good voicing in functional communication opportunities. 4. Pt will produce structured speech tasks increasing in length and complexity over course of treatment with good voicing at normal conversational levels (65-75 dB) to increase endurance of good quality voice and breath support for functional conversation opportunities. Longterm Goals 1. The pt will perform structured voice tasks (e.g., sustained phonation, pitch range, reading tasks) with voicing, including loudness levels, WNL to increase speech intelligibility and good quality voice. 2. The pt will produce spontaneous conversation with multiple conversation partners and in a variety of environments with loudness levels and vocal quality WNL in 80% of opportunities to increase speech intelligibility and maintain communicative independence and quality of life. 3. The pt will demonstrate independence with HEP to promote carryover of tx results to functional conversation tasks and maintain speech intelligibility and good quality voice in presence of a progressive disease. Treatment Activities The pt completed the following : MPT = 15.2.s, loudness not instrumentally measured d/t equipment inconsistencies but perceived to be at target loudness. Range: 10-15.2 s Pitch Range: 122-444 Hz; Highs, avg 70.7 dB; Lows, avg 70.1 dB. Functional Phrases, Sentences: Avg loudness 80.7 dB Paragraph reading: Pt read short stories (1 page) with avg loudness of 79 dB Conversation: Avg loudness 74 dB Mostly clear vocal quality throughout. Mildly increased roughness in conversation. Good vocal inflection with all tasks. Targeted increasing facial expression while reading functional phrases. Pt occasionally raised eyebrows but otherwise had little variation in facial expression . Exercises for home practice were provided with education and feedback RE common symptom of masked facies associated with PD. Pt verbalized understanding and agreement with target. Assessment Patient Response to Treatment Good Rehab Potential Excellent Impairments Identified Speech Intelligibility,Vocal Quality Progress Towards Goals Good Progress Assessment of Overall Progress Improving Assessment of Improvement Over the course of treatment, the pt has made excellent progress in increasing loudness in structured tasks and in conversation. Duration of sustained phonation has decreased over the sessions; however, vocal quality and loudness levels have both improved. The pt has shown good awareness of deficits and increased self-monitoring and -correcting during tasks. Vocal inflection has improved very well, and incorporation of facial expressions was introduced today, as the pt shows little variation in this and is at risk of masked facies. He has been highly stimulable in all other targets and is anticipated to improve facial expression with training, as well. Reviewed with Patient Goals,Progress Being Made,Home Exercise Program Patient/Caregiver Understanding Good Plan Amount of Therapy Recommended 1-2 Months Frequency of Treatment Four Times a Week Length of Session 60 Minutes Treatment Emphasis Next Session Cont para level rdg tasks; facial expression; relaxed larynx in conv. Therapeutic Contents Client Education,Home Exercise Program,Voice Training Provided Patient/Caregiver Instruction Home Exercise Program,Plan of Care,Questions/Concerns Therapy Recommendations Continue with Current Program
--- NOTE | 2021-05-10 10:04 | ST.OPTN ---
Visit Care Team Role Provider Type Alfredo Du MD Family Provider Physician Primary Care Provider Address: [address] [place] [address], [place], [address] Tao Bonilla MD Attending Provider Physician Referring Provider Address: [address] [place] [address], [id number] DIRECTOR CALL Treatment Note DIRECTOR CALL Treatment Note Start: 04/18/21 14:56 Freq: Status: Active Protocol: Document 05/10/21 10:00 LETY (Rec: 05/10/21 10:04 LETY [email or web address]) Speech Pathology Treatment Note Session Time Visit Start Time 08:30 Visit Stop Time 09:30 Total Visit Minutes 60 Visit Information Visit Number 04/04 Plan of Care Dates 04/18/21 - 07/17/21 Insurance Information Medicare Setting Treatment Setting Outpatient Care Visit Type Note Type Progress Note Next Note Type Next Note Type Treatment Note General Information General Information The pt is a 75-yr-old male who was diagnosed with Parkinson' s disease Dec 2009 but with initial symptoms (primarily essential tremor) appearing in 2017. He reports others, including his , frequently ask him to repeat himself because his voice is quiet and he mumbles, and he stated that this bothers him to the point that he sometimes responds angrily. He stated that he has always been relatively soft spoken but that his current loudness levels sound normal or louder than normal to him. He recently underwent neuropsychological testing, both when taking and when not taking medication. He stated that he passed pretty well. In April, he has an appointment to pursue Focused Ultrasound treatment to assist with tremor, which was consistently noticeable in right arm and hand and occasionally noticeable in his right leg during this evaluation. The pt lives [place] his [place] with his . He is actively involved with the local [employer] and has been athletic all his life, particularly skiing and swimming. 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 Subjective Observations/Patient Presentation The pt arrived on time. No new complaints. Pt has been compliant with HEP. Chief Complaint(s) Voice Patient Knowledge/Awareness of DIRECTOR CALL Role Good in Treatment Patient/Caregiver Compliance with Home Good Exercise Program Objective Short Term Goals 1. Pt will sustain phonation for 25 seconds with good quality voice at avg 80 dB to increase breath support for speech and vocal quality. 2. Pt will produce pitch range WFL with good quality voice at avg 80 dB to increase prosody in speech and improve vocal quality. 3. Pt will read functional phrases with good quality voice at avg 71 dB to improve/ maintain speech intelligibility and promote carryover of good voicing in functional communication opportunities. 4. Pt will produce structured speech tasks increasing in length and complexity over course of treatment with good voicing at normal conversational levels (65-75 dB) to increase endurance of good quality voice and breath support for functional conversation opportunities. Senior Care Goals 1. The pt will perform structured voice tasks (e.g., sustained phonation, pitch range, reading tasks) with voicing, including loudness levels, WNL to increase speech intelligibility and good quality voice. 2. The pt will produce spontaneous conversation with multiple conversation partners and in a variety of environments with loudness levels and vocal quality WNL in 80% of opportunities to increase speech intelligibility and maintain communicative independence and quality of life. 3. The pt will demonstrate independence with HEP to promote carryover of tx results to functional conversation tasks and maintain speech intelligibility and good quality voice in presence of a progressive disease. Treatment Activities The pt completed the following : MPT = 15.7.s, Range: 10-15.2 s ; Avg loudness 79.5 dB Pitch Range: 122-466 Hz; Highs, avg 76.4 dB; Lows, avg 73.7 dB. Functional Phrases, Sentences: Avg loudness 80 dB Paragraph reading: Pt read short stories (1 page) with avg loudness of 80 dB Conversation: Avg loudness 75. 7 dB Mostly clear vocal quality throughout. Mildly increased roughness in conversation. Good vocal inflection with all tasks. Assessment Patient Response to Treatment Good Rehab Potential Excellent Impairments Identified Speech Intelligibility,Vocal Quality Progress Towards Goals Good Progress Assessment of Overall Progress Improving Assessment of Improvement Pt continues to make excellent progress toward goals, improving in control of voice in pitch glides with increased pitch range. He's being very consistent in hitting target loudness levels, particularly in structured tasks. Occ prompts required in off-the- cuff remarks and short answer responses. In lengthier conversations, the pt is meeting target loudness levels . Reviewed with Patient Goals,Progress Being Made,Home Exercise Program Patient/Caregiver Understanding Good Plan Amount of Therapy Recommended 1-2 Months Frequency of Treatment Four Times a Week Length of Session 60 Minutes Treatment Emphasis Next Session Cont para level rdg tasks; facial expression; relaxed larynx in conv. Therapeutic Contents Client Education,Home Exercise Program,Voice Training Provided Patient/Caregiver Instruction Home Exercise Program,Plan of Care,Questions/Concerns Therapy Recommendations Continue with Current Program
--- NOTE | 2021-05-11 09:50 | ST.OPTN ---
Visit Care Team Role Provider Type Alfredo Du MD Family Provider Physician Primary Care Provider Address: [address] [place] [address], [place], [address] Tao Bonilla MD Attending Provider Physician Referring Provider Address: [address] [place] [address], [id number] BINDER SORTER Treatment Note BINDER SORTER Treatment Note Start: 04/18/21 14:56 Freq: Status: Active Protocol: Document 05/11/21 09:44 LETY (Rec: 05/18/21 09:48 LETY [email or web address]) Speech Pathology Treatment Note Session Time Visit Start Time 08:30 Visit Stop Time 09:30 Total Visit Minutes 60 Visit Information Visit Number Plan of Care Dates 04/18/21 - 07/17/21 Insurance Information Medicare Setting Treatment Setting Outpatient Care Visit Type Note Type Progress Note Next Note Type Next Note Type Treatment Note General Information General Information The pt is a 75-yr-old male who was diagnosed with Parkinson' s disease Dec 2009 but with initial symptoms (primarily essential tremor) appearing in 2017. He reports others, including his , frequently ask him to repeat himself because his voice is quiet and he mumbles, and he stated that this bothers him to the point that he sometimes responds angrily. He stated that he has always been relatively soft spoken but that his current loudness levels sound normal or louder than normal to him. He recently underwent neuropsychological testing, both when taking and when not taking medication. He stated that he passed pretty well. In April, he has an appointment to pursue Focused Ultrasound treatment to assist with tremor, which was consistently noticeable in right arm and hand and occasionally noticeable in his right leg during this evaluation. The pt lives [place] with his . He is actively involved with the local [employer] and has been athletic all his life, particularly skiing and swimming. 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 Subjective Observations/Patient Presentation The pt arrived on time. No new complaints. Chief Complaint(s) Voice Patient Knowledge/Awareness of BINDER SORTER Role Good in Treatment Patient/Caregiver Compliance with Home Good Exercise Program Objective Short Term Goals 1. Pt will sustain phonation for 25 seconds with good quality voice at avg 80 dB to increase breath support for speech and vocal quality. 2. Pt will produce pitch range WFL with good quality voice at avg 80 dB to increase prosody in speech and improve vocal quality. 3. Pt will read functional phrases with good quality voice at avg 71 dB to improve/ maintain speech intelligibility and promote carryover of good voicing in functional communication opportunities. 4. Pt will produce structured speech tasks increasing in length and complexity over course of treatment with good voicing at normal conversational levels (65-75 dB) to increase endurance of good quality voice and breath support for functional conversation opportunities. Care Home Goals 1. The pt will perform structured voice tasks (e.g., sustained phonation, pitch range, reading tasks) with voicing, including loudness levels, WNL to increase speech intelligibility and good quality voice. 2. The pt will produce spontaneous conversation with multiple conversation partners and in a variety of environments with loudness levels and vocal quality WNL in 80% of opportunities to increase speech intelligibility and maintain communicative independence and quality of life. 3. The pt will demonstrate independence with HEP to promote carryover of tx results to functional conversation tasks and maintain speech intelligibility and good quality voice in presence of a progressive disease. Treatment Activities The pt completed the following : MPT = 15.6s, Range: 9-15.6s; Avg loudness 78 dB Pitch Range: 125-472 Hz; Highs, avg 75.6 dB; Lows, avg 73.4 dB. Functional Phrases, Sentences: Avg loudness 80 dB Reading: Avg loudness 79.2 dB Conversation: Avg loudness 74.3 dB Assessment Patient Response to Treatment Good Rehab Potential Excellent Impairments Identified Speech Intelligibility,Vocal Quality Progress Towards Goals Good Progress Assessment of Overall Progress Improving Assessment of Improvement The pt continues making excellent progress toward goals. Reviewed with Patient Goals,Progress Being Made,Home Exercise Program Patient/Caregiver Understanding Good Plan Amount of Therapy Recommended 1-2 Months Frequency of Treatment Four Times a Week Length of Session 60 Minutes Treatment Emphasis Next Session Cont para level rdg tasks; facial expression; relaxed larynx in conv. Therapeutic Contents Client Education,Home Exercise Program,Voice Training Provided Patient/Caregiver Instruction Home Exercise Program,Plan of Care,Questions/Concerns Therapy Recommendations Continue with Current Program
--- NOTE | 2021-05-17 13:54 | ST.OPTN ---
Addendum entered and electronically signed by Garth Sanchez 05/18/21 10:01: Visit Number: Original Note: Visit Care Team Role Provider Type Alfredo Du MD Family Provider Physician Primary Care Provider Address: [address] [place] [address], [place], [address] Tao Bonilla MD Attending Provider Physician Referring Provider Address: [address] [place] [address], [address] CUSTOMER EXPERIENCE RETAIL CLERK Treatment Note CUSTOMER EXPERIENCE RETAIL CLERK Treatment Note Start: 04/18/21 14:56 Freq: Status: Active Protocol: Document 05/17/21 13:48 LETY (Rec: 05/17/21 13:54 LETY [email or web address]) Speech Pathology Treatment Note Session Time Visit Start Time 08:30 Visit Stop Time 09:30 Total Visit Minutes 60 Visit Information Visit Number 05/04 Plan of Care Dates 04/18/21 - 07/17/21 Insurance Information Medicare Setting Treatment Setting Outpatient Care Visit Type Note Type Progress Note Next Note Type Next Note Type Treatment Note General Information General Information The pt is a 75-yr-old male who was diagnosed with Parkinson' s disease Dec 2009 but with initial symptoms (primarily essential tremor) appearing in 2017. He reports others, including his , frequently ask him to repeat himself because his voice is quiet and he mumbles, and he stated that this bothers him to the point that he sometimes responds angrily. He stated that he has always been relatively soft spoken but that his current loudness levels sound normal or louder than normal to him. He recently underwent neuropsychological testing, both when taking and when not taking medication. He stated that he passed pretty well. In April, he has an appointment to pursue Focused Ultrasound treatment to assist with tremor, which was consistently noticeable in right arm and hand and occasionally noticeable in his right leg during this evaluation. The pt lives [place] with his . He is actively involved with the local [employer] and has been athletic all his life, particularly skiing and swimming. 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 Subjective Observations/Patient Presentation The pt arrived on time. No new complaints. Pt has been compliant with HEP. Due to inclement weather, 2 sessions were canceled this week and are rescheduled for next week to complete LSVT-Loud tx. Chief Complaint(s) Voice Patient Knowledge/Awareness of CUSTOMER EXPERIENCE RETAIL CLERK Role Good in Treatment Patient/Caregiver Compliance with Home Good Exercise Program Objective Short Term Goals 1. Pt will sustain phonation for 25 seconds with good quality voice at avg 80 dB to increase breath support for speech and vocal quality. 2. Pt will produce pitch range WFL with good quality voice at avg 80 dB to increase prosody in speech and improve vocal quality. 3. Pt will read functional phrases with good quality voice at avg 71 dB to improve/ maintain speech intelligibility and promote carryover of good voicing in functional communication opportunities. 4. Pt will produce structured speech tasks increasing in length and complexity over course of treatment with good voicing at normal conversational levels (65-75 dB) to increase endurance of good quality voice and breath support for functional conversation opportunities. Fdc Goals 1. The pt will perform structured voice tasks (e.g., sustained phonation, pitch range, reading tasks) with voicing, including loudness levels, WNL to increase speech intelligibility and good quality voice. 2. The pt will produce spontaneous conversation with multiple conversation partners and in a variety of environments with loudness levels and vocal quality WNL in 80% of opportunities to increase speech intelligibility and maintain communicative independence and quality of life. 3. The pt will demonstrate independence with HEP to promote carryover of tx results to functional conversation tasks and maintain speech intelligibility and good quality voice in presence of a progressive disease. Treatment Activities The pt completed the following : MPT = 20.s, Range: 14-20 s; Avg loudness 76.7 dB Pitch Range: 118-514 Hz; Highs, avg 76.1 dB; Lows, avg 71.7 dB. Functional Phrases, Sentences: Avg loudness 80.5 dB Conversation: Avg loudness 73 dB pt's voice was perceptually mildly raspy today. He did well clearing it independently as able during and outside of voicing. Education was provided RE layrngeal movement during pitch changes and during swallowing, in response to pt questions. Using finger placement on throat for biofeedback, the pt felt layrngeal movement during both tasks. Assessment Patient Response to Treatment Good Rehab Potential Excellent Impairments Identified Speech Intelligibility,Vocal Quality Progress Towards Goals Good Progress Assessment of Overall Progress Improving Assessment of Improvement The pt continues making excellent progress toward goals. He asked good questions about laryngeal function as related to voice and swallow. Is demonstrating independent shaping of voice to maintain clearest vocal quality possible. Mild raspiness of voice was perceived today, consistent with presence of mucus. The pt self-monitored and managed. Reviewed with Patient Goals,Progress Being Made,Home Exercise Program Patient/Caregiver Understanding Good Plan Amount of Therapy Recommended 1-2 Months Frequency of Treatment Four Times a Week Length of Session 60 Minutes Treatment Emphasis Next Session Cont para level rdg tasks; facial expression; relaxed larynx in conv. Therapeutic Contents Client Education,Home Exercise Program,Voice Training Provided Patient/Caregiver Instruction Home Exercise Program,Plan of Care,Questions/Concerns Therapy Recommendations Continue with Current Program
--- NOTE | 2021-05-18 10:01 | ST.OPTN ---
Visit Care Team Role Provider Type Alfredo Du MD Family Provider Physician Primary Care Provider Address: [address] [place] [address], [place], [address] Tao Bonilla MD Attending Provider Physician Referring Provider Address: [address] [place] [address], [id number] GASOLINE ENGINE ASSEMBLER Treatment Note GASOLINE ENGINE ASSEMBLER Treatment Note Start: 04/18/21 14:56 Freq: Status: Active Protocol: Document 05/18/21 09:44 LETY (Rec: 05/18/21 09:48 LETY [email or web address]) Speech Pathology Treatment Note Session Time Visit Start Time 08:30 Visit Stop Time 09:30 Total Visit Minutes 60 Visit Information Visit Number Plan of Care Dates 04/18/21 - 07/17/21 Insurance Information Medicare Setting Treatment Setting Outpatient Care Visit Type Note Type Progress Note Next Note Type Next Note Type Treatment Note General Information General Information The pt is a 75-yr-old male who was diagnosed with Parkinson' s disease Dec 2009 but with initial symptoms (primarily essential tremor) appearing in 2017. He reports others, including his , frequently ask him to repeat himself because his voice is quiet and he mumbles, and he stated that this bothers him to the point that he sometimes responds angrily. He stated that he has always been relatively soft spoken but that his current loudness levels sound normal or louder than normal to him. He recently underwent neuropsychological testing, both when taking and when not taking medication. He stated that he passed pretty well. In April, he has an appointment to pursue Focused Ultrasound treatment to assist with tremor, which was consistently noticeable in right arm and hand and occasionally noticeable in his right leg during this evaluation. The pt [place] with his . He is actively involved with the local [employer] and has been athletic all his life, particularly skiing and swimming. 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 Subjective Observations/Patient Presentation The pt arrived on time. No new complaints. Pt has been compliant with HEP. Chief Complaint(s) Voice Patient Knowledge/Awareness of GASOLINE ENGINE ASSEMBLER Role Good in Treatment Patient/Caregiver Compliance with Home Good Exercise Program Objective Short Term Goals 1. Pt will sustain phonation for 25 seconds with good quality voice at avg 80 dB to increase breath support for speech and vocal quality. 2. Pt will produce pitch range WFL with good quality voice at avg 80 dB to increase prosody in speech and improve vocal quality. 3. Pt will read functional phrases with good quality voice at avg 71 dB to improve/ maintain speech intelligibility and promote carryover of good voicing in functional communication opportunities. 4. Pt will produce structured speech tasks increasing in length and complexity over course of treatment with good voicing at normal conversational levels (65-75 dB) to increase endurance of good quality voice and breath support for functional conversation opportunities. Residential Goals 1. The pt will perform structured voice tasks (e.g., sustained phonation, pitch range, reading tasks) with voicing, including loudness levels, WNL to increase speech intelligibility and good quality voice. 2. The pt will produce spontaneous conversation with multiple conversation partners and in a variety of environments with loudness levels and vocal quality WNL in 80% of opportunities to increase speech intelligibility and maintain communicative independence and quality of life. 3. The pt will demonstrate independence with HEP to promote carryover of tx results to functional conversation tasks and maintain speech intelligibility and good quality voice in presence of a progressive disease. Treatment Activities The pt completed the following : MPT = 26.7s, Range: 18.9-26.7s ; Avg loudness 76 dB Pitch Range: 110-533 Hz; Highs, avg 77.9 dB; Lows, avg 73.3 dB. Functional Phrases, Sentences: Avg loudness 80 dB Conversation in hospital cafeteria with background noise ~60 dB: Loudness was not instrumentally measured. Pt's loudness was WNL with no additional effort required by clinician to hear or understand him. Pt's voice continued with mild raspiness today. He did well clearing it independently as able during and outside of voicing. Excellent progress with MPT. Pt commented that he felt he was finally able to really use my abs. Assessment Patient Response to Treatment Good Rehab Potential Excellent Impairments Identified Speech Intelligibility,Vocal Quality Progress Towards Goals Good Progress Assessment of Overall Progress Improving Assessment of Improvement The pt continues making excellent progress toward goals. He was 100% intelligible in a new and louder environment, appropriately adapting loudness levels to meet the demands of a variety of environments throughout the hospital. Reviewed with Patient Goals,Progress Being Made,Home Exercise Program Patient/Caregiver Understanding Good Plan Amount of Therapy Recommended 1-2 Months Frequency of Treatment Four Times a Week Length of Session 60 Minutes Treatment Emphasis Next Session Cont conversation; facial expression; relaxed larynx in conv. Therapeutic Contents Client Education,Home Exercise Program,Voice Training Provided Patient/Caregiver Instruction Home Exercise Program,Plan of Care,Questions/Concerns Therapy Recommendations Continue with Current Program
--- NOTE | 2021-05-24 16:55 | ST.OPTN ---
Visit Care Team Role Provider Type Alfredo Du MD Family Provider Physician Primary Care Provider Address: [address] [place] [address], [place], [address] Tao Bonilla MD Attending Provider Physician Referring Provider Address: [address] [place] [address], [id number] PSYCHIATRY PHYSICIAN Treatment Note PSYCHIATRY PHYSICIAN Treatment Note Start: 04/18/21 14:56 Freq: Status: Active Protocol: Document 05/24/21 16:49 LETY (Rec: 05/24/21 16:55 LETY [email or web address]) Speech Pathology Treatment Note Session Time Visit Start Time 08:30 Visit Stop Time 09:30 Total Visit Minutes 60 Visit Information Visit Number 15 Plan of Care Dates 04/18/21 - 07/17/21 Insurance Information Medicare Setting Treatment Setting Outpatient Care Visit Type Note Type Progress Note Next Note Type Next Note Type Treatment Note General Information General Information The pt is a 75-yr-old male who was diagnosed with Parkinson' s disease Dec 2009 but with initial symptoms (primarily essential tremor) appearing in 2017. He reports others, including his , frequently ask him to repeat himself because his voice is quiet and he mumbles, and he stated that this bothers him to the point that he sometimes responds angrily. He stated that he has always been relatively soft spoken but that his current loudness levels sound normal or louder than normal to him. He recently underwent neuropsychological testing, both when taking and when not taking medication. He stated that he passed pretty well. In April, he has an appointment to pursue Focused Ultrasound treatment to assist with tremor, which was consistently noticeable in right arm and hand and occasionally noticeable in his right leg during this evaluation. The pt lives [place] his [place] with his . He is actively involved with the local [employer] and has been athletic all his life, particularly skiing and swimming. 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 Subjective Observations/Patient Presentation The pt arrived on time. No new complaints. Pt has been compliant with HEP. Chief Complaint(s) Voice Patient Knowledge/Awareness of PSYCHIATRY PHYSICIAN Role Good in Treatment Patient/Caregiver Compliance with Home Good Exercise Program Objective Short Term Goals 1. Pt will sustain phonation for 25 seconds with good quality voice at avg 80 dB to increase breath support for speech and vocal quality. 2. Pt will produce pitch range WFL with good quality voice at avg 80 dB to increase prosody in speech and improve vocal quality. 3. Pt will read functional phrases with good quality voice at avg 71 dB to improve/ maintain speech intelligibility and promote carryover of good voicing in functional communication opportunities. 4. Pt will produce structured speech tasks increasing in length and complexity over course of treatment with good voicing at normal conversational levels (65-75 dB) to increase endurance of good quality voice and breath support for functional conversation opportunities. [facility] Goals 1. The pt will perform structured voice tasks (e.g., sustained phonation, pitch range, reading tasks) with voicing, including loudness levels, WNL to increase speech intelligibility and good quality voice. 2. The pt will produce spontaneous conversation with multiple conversation partners and in a variety of environments with loudness levels and vocal quality WNL in 80% of opportunities to increase speech intelligibility and maintain communicative independence and quality of life. 3. The pt will demonstrate independence with HEP to promote carryover of tx results to functional conversation tasks and maintain speech intelligibility and good quality voice in presence of a progressive disease. Treatment Activities The pt completed the following : MPT = 14.5s, Range: 10.8-14.5s ; Avg loudness 78 dB Pitch Range: 120-459 Hz; Highs, avg 75.5 dB; Lows, avg 71.5 dB. Functional Phrases, Sentences: Avg loudness 81 dB Conversation in hospital cafeteria with background noise ~65 dB: Loudness was not instrumentally measured. Pt's loudness was WNL with no additional effort required by clinician to hear or understand him. Pt's voice was intermittently rough today, likely secondary to extensive coughing yesterday. MPT was lower, also likely as a result of reduced VF efficiency. Assessment Patient Response to Treatment Good Rehab Potential Excellent Impairments Identified Speech Intelligibility,Vocal Quality Progress Towards Goals Good Progress Assessment of Overall Progress Improving Assessment of Improvement The pt continues making excellent progress toward goals. He was 100% intelligible in a loud environment, appropriately adapting loudness levels to meet the demands of a variety of environments throughout the hospital. Mild decline in vocal quality and MPT, likely secondary to mild VF trauma from coughing. This is not anticipated to be a lasting effect. Reviewed with Patient Goals,Progress Being Made,Home Exercise Program Patient/Caregiver Understanding Good Plan Amount of Therapy Recommended 1-2 Months Frequency of Treatment Four Times a Week Length of Session 60 Minutes Treatment Emphasis Next Session Cont conversation; facial expression; relaxed larynx in conv. Therapeutic Contents Client Education,Home Exercise Program,Voice Training Provided Patient/Caregiver Instruction Home Exercise Program,Plan of Care,Questions/Concerns Therapy Recommendations Continue with Current Program
--- NOTE | 2021-05-25 10:02 | ST.OPTN ---
Visit Care Team Role Provider Type Alfredo Du MD Family Provider Physician Primary Care Provider Address: [address] [place] [address], [address], [place], [address] Tao Bonilla MD Attending Provider Physician Referring Provider Address: [address] [place] [address], [id number] CHEMISTRY INTERN Treatment Note CHEMISTRY INTERN Treatment Note Start: 04/18/21 14:56 Freq: Status: Active Protocol: Document 05/25/21 09:38 LETY (Rec: 05/25/21 09:59 LETY [id number]) Speech Pathology Treatment Note Session Time Visit Start Time 08:30 Visit Stop Time 09:40 Total Visit Minutes 70 Visit Information Visit Number Plan of Care Dates 04/18/21 - 07/17/21 Insurance Information Medicare Setting Treatment Setting Outpatient Care Visit Type Note Type Discharge Summary General Information General Information The pt is a now 76-yr-old male who was diagnosed with Parkinson's disease Dec 2009 but with initial symptoms ( primarily essential tremor) appearing in 2017. He reports others, including his , frequently ask him to repeat himself because his voice is quiet and he mumbles, and he stated that this bothers him to the point that he sometimes responds angrily. He stated that he has always been relatively soft spoken but that his current loudness levels sound normal or louder than normal to him. He recently underwent neuropsychological testing, both when taking and when not taking medication. He stated that he passed pretty well. In April, he has an appointment to pursue Focused Ultrasound treatment to assist with tremor, which was consistently noticeable in right arm and hand and occasionally noticeable in his right leg during this evaluation. The pt [place] with his . He is actively involved with the local [employer] and has been athletic all his life, particularly skiing and swimming. 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 Subjective Observations/Patient Presentation The pt arrived on time. No new complaints. Pt has been compliant with HEP. Chief Complaint(s) Voice Patient Knowledge/Awareness of CHEMISTRY INTERN Role Good in Treatment Patient/Caregiver Compliance with Home Good Exercise Program Objective Short Term Goals ALL GOALS HAVE BEEN MET 1. Pt will sustain phonation for 25 seconds with good quality voice at avg 80 dB to increase breath support for speech and vocal quality. 2. Pt will produce pitch range WFL with good quality voice at avg 80 dB to increase prosody in speech and improve vocal quality. 3. Pt will read functional phrases with good quality voice at avg 71 dB to improve/ maintain speech intelligibility and promote carryover of good voicing in functional communication opportunities. 4. Pt will produce structured speech tasks increasing in length and complexity over course of treatment with good voicing at normal conversational levels (65-75 dB) to increase endurance of good quality voice and breath support for functional conversation opportunities. Nursing Home Goals ALL GOALS HAVE BEEN MET 1. The pt will perform structured voice tasks (e.g., sustained phonation, pitch range, reading tasks) with voicing, including loudness levels, WNL to increase speech intelligibility and good quality voice. 2. The pt will produce spontaneous conversation with multiple conversation partners and in a variety of environments with loudness levels and vocal quality WNL in 80% of opportunities to increase speech intelligibility and maintain communicative independence and quality of life. 3. The pt will demonstrate independence with HEP to promote carryover of tx results to functional conversation tasks and maintain speech intelligibility and good quality voice in presence of a progressive disease. Treatment Activities The pt completed the following : MPT = 19.5s, Range: 15.4-19.5s ; Avg loudness 78 dB Pitch Range: 137-552 Hz; Highs, avg 75 dB; Lows, avg 71.3 dB. Functional Phrases, Sentences: Avg loudness 78.5 dB Conversation: Avg loudness 78. 5 dB Pt's voice was intermittently rough today, improved from yesterday. Pt completed VHI: Functional Scale: 10 (improved from 28 at SOC); Physical Scale: 14 ( improved from 23 at SOC); Emotional Scale: 9 (improved from 13 at SOC); Total: 33, Mild-Moderate (improved from 54, Moderate-Severe at SOC). Administered CAPE-V: Overall Severity 21%, Mild-Moderate ( Improved from 29% Moderate at SOC); Roughness 9% Mild, Intermittent (Improved from 5- 14% [normal loudness vs increased loudness, respectively] Mild-Moderate at SOC); Breathiness WNL ( unchanged since SOC); Strain WNL (improved from 3-23% [ normal loudness vs increased loudness, respectively] Minimal to Mild-Moderate at SOC); Pitch WNL (improved from 5% Minimal) at SOC; and Loudness 24% Mild-Moderate ( improved from 33% Moderate) at SOC. Voice recordings from SOC and today were played back for comparison. Both pt and CHEMISTRY INTERN perceived improved stability of voice, speech intelligibility from both improved loudness and articulation, and increased prosodic features. Assessment Patient Response to Treatment Excellent Rehab Potential Excellent Impairments Identified Speech Intelligibility,Vocal Quality Progress Towards Goals Good Progress,Goals Met Assessment of Overall Progress Improving Assessment of Improvement Over the course of treatment, the pt has demonstrated excellent improvement in speech intelligibility from greater stability of voice, clarity and precision of articulation, greater pitch range in structured tasks and prosody in speech, and increased loudness. Loudness is particularly improved in conversations, while the pt continues to require occasional prompts to increase loudness in short, off-the- cuff remarks. The pt reports significantly less need to repeat himself when talking with others, with the exception of his when they are in their home environment. However, he recognized that he requires fewer prompts from her, as he is self-prompting more with increased awareness resulting from treatment. The pt has been compliant with HEP throughout tx, but expressed concern that he may not keep up with exercises on his own. An exercise journal was provided to him to assist with this. The pt is an excellent candidate for the [facility] program, which will hopefully be available in the community when the COVID- 19 PHE is over. The pt has successfully completed the [facility] program and is discharged at this time. It is recommended that he return for follow-up in 3-6 mos to boost skills as needed and promote long-term positive effects. Reviewed with Patient Goals,Progress Being Made,Home Exercise Program Patient/Caregiver Understanding Good Plan Amount of Therapy Recommended 1-2 Months Frequency of Treatment Four Times a Week Length of Session 60 Minutes Therapeutic Contents Client Education,Home Exercise Program,Voice Training Provided Patient/Caregiver Instruction Home Exercise Program,Plan of Care,Questions/Concerns Therapy Recommendations Discharge to Home Exercise Program
== END 2021-06-20 08:38 | disposition home or self-care (01) ==
LOC: SP 08:30
PROVIDERS: Family Provider Family Medicine; PCP Family Medicine; Referring Provider Otolaryngology; Visit Provider Otolaryngology
DX: G20 Parkinson's disease (principal); R49.0 Dysphonia
CPT/HCPCS: 92507; 92520; 92524

== ENCOUNTER → 2021-08-10 09:40 | Outpatient (CLI) | payer MEDICARE, OTHER, SELFPAY ==
[2020-01-20 11:37] VITALS: BMI 23.9
--- NOTE | 2021-08-29 15:42 | P.HOLT.S_ITS ---
Technical Applications Scientist Report Referral & Results Date Patient Seen: 08/10/21 Requesting provider: Alfredo Du Indication: Atrial fibrillation Duration of monitoring (days): 14 Diary information: There were 6 patient triggered events and 3 patient diary entries Patient triggered events were variably associated with (within 45 seconds) sinus rhythm, SVT, and possibly a junctional rhythm that appears to be narrow complex possibly supraventricular in origin Patient diary events were associated with sinus rhythm only Data: Minimum heart rate identified was 55 beats per minute at 10:28 on 08/17/2021 Maximum sinus heart rate was 110 beats per minute at 22:06 on 08/10/2021 Maximum overall heart rate was 171 beats per minute at 20:34 on 08/10/2021 during a run of SVT Less than 1% of identified beats were ventricular or supraventricular ectopic in origin, which would classify them as rare. There were 33 runs of SVT with the fastest being 171 beats per minute at 51.4 seconds and the longest lasting 6 minutes 5 seconds Atrial flutter was also present approximately 15% of identified beats were atrial flutter in origin. Heart rate during these episodes 41-147 beats per minute Interestingly patient events not appeared to correlate with episodes of atrial flutter The longest run of atrial flutter was 1 day 3 hours in duration, as per the computer Impression: 14 day groundwater monitoring technician demonstrating 15% burden of atrial flutter up to just over a days duration for the longest duration event Otherwise rare brief runs of SVT and rare simple ectopy
== END ==
PROVIDERS: Family Provider Family Medicine; PCP Family Medicine; Referring Provider Family Medicine; Visit Provider Family Medicine
DX: I48.91 Unspecified atrial fibrillation (principal)
CPT/HCPCS: 93246; 93248

== ENCOUNTER → 2021-09-20 09:22 | Outpatient (CLI) | payer MEDICARE, OTHER, SELFPAY ==
[2020-01-20 11:37] VITALS: BMI 23.9
[2021-09-20 13:42] LABS: COVID19 -Nasal RAPID Negative (Negative)
== END ==
PROVIDERS: Family Provider Family Medicine; PCP Family Medicine; Visit Provider Family Medicine Sleep Medicine
DX: Z20.822 Contact with and (suspected) exposure to COVID-19 (principal)
CPT/HCPCS: 87635; C9803

== ENCOUNTER → 2021-09-21 07:25 | Outpatient (CLI) | payer MEDICARE, OTHER, SELFPAY ==
[2020-01-20 11:37] VITALS: BMI 23.9
--- NOTE | 2021-09-21 | DI.NM.S_ITS ---
PROCEDURE: NM YVONNE PERF SPECT REST & STR Rest and exercise myocardial perfusion SPECT with gated imaging and ejection fraction RADIOPHARMACEUTICAL: 11.2 mCi Tc-99m sestamibi IV at rest and 24.7 mCi Tc-99m sestamibi IV at peak exercise. A one day-protocol was performed. INDICATIONS: chest pain TECHNIQUE: Radiopharmaceutical was injected at peak stress test, and also at rest. SPECT images were obtained. SPECT myocardial perfusion images were displayed in short axis, horizontal long axis, and vertical long axis views. Gated images were reviewed using CYP Design software. COMPARISON: None. CARDIAC STRESS: A standard [employer] treadmill exercise tolerance test was performed by the patient under the supervision of an attending staff. The patient exercised for 11.2 minutes and 24.7 seconds; functional aerobic impairment (NATALIIA) is -51 %. Hemodynamic data: There is normal blood pressure and heart rate response to exercise stress. Patient achieved 72% of maximum predicted heart rate at peak exercise. Study switched to pharmaceutical stress. Symptoms: Patient denied chest pain during exercise. EKG: No diagnostic EKG changes of ischemia; no ectopy. FINDINGS: Raw data: There is good myocardial labeling by radiotracer. No significant motion artifacts. Xbcr-gn-znrnf ratio is 0.37 (normal is less than 0.38 for sestamibi tracer, and less than 0.50 for thallium tracer). Left ventricle function: Gated images demonstrate normal left ventricle wall thickening. No segmental wall motion abnormality. No transient ischemic dilation; TID is 0.88 (normal less than 1.3). The left ventricle resting end-diastolic volume is 115 mL. Left ventricle stress ejection fraction is 84%; normal values are above 45%. Myocardial perfusion: There is a normal perfusion on stress prone images. IMPRESSION: Low risk, normal pharmaceutical nuclear stress test. 1) No perfusion evidence of ischemia or infarction. 2) Normal left ventricular size, wall motion, and systolic function (EF post stress 84%). 3) No ST changes with exercise. 4) No angina during the study. 5) Excellent exercise tolerance (10.1 METs, NATALIIA -51%). Since only 72% of maximum predicted heart rate reached, study was switched to pharmaceutical nuclear stress. 6) Compared to the nuc stress done 11/07/2015, no significant change. Dictated by: Jhonna Baig MD on 09/21/2021 at 14:10 Approved by: Johnna Baig MD on 09/21/2021 at 14:17
--- NOTE | 2021-09-21 11:57 | PM.TREADMILL ---
Cardiac Stress Test Report Referral & Results Date Patient Seen: 09/21/21 Time Patient Seen: 11:57 Requesting provider: Alfredo Du Indication: Chest pain Rest ECG: Sinus rhythm Procedure Note: Standard [employer] protocol, 8:45 mins, 9.7 mets excellent exercise capacity, NATALIIA -51% Normal hemodynamic response to exercise No chest pain or anginal symptoms No significant ST changes at peak exercise, rare PVC Test stopped due to failure to achieve target heart rate Test changed to Lexiscan After Lexiscan injection had minimal dyspnea, no chest pain No significant ST changes after Lexiscan injection Impression: Normal exercise stress test Nuclear images pending Please note: Actual ECG tracings can be found in the PACS system.
== END ==
PROVIDERS: Family Provider Family Medicine; PCP Family Medicine; Referring Provider Family Medicine; Visit Provider Family Medicine
DX: R07.89 Other chest pain (principal)
CPT/HCPCS: 78452; 93017; A9502; J2785

== ENCOUNTER → 2021-11-13 11:00 | Outpatient (CLI) | payer MEDICARE, OTHER, SELFPAY ==
[2020-01-20 11:37] VITALS: BMI 23.9
== END ==
PROVIDERS: Family Provider Family Medicine; PCP Family Medicine; Referring Provider Family Medicine; Visit Provider Family Medicine
DX: Z53.20 Procedure and treatment not carried out because of patient's decision for unspecified reasons (principal)

== ENCOUNTER → 2022-01-08 08:39 | Outpatient (CLI) | payer MEDICARE, OTHER, SELFPAY ==
[2020-01-20 11:37] VITALS: BMI 23.9
[2021-12-14 16:36] VITALS: BMI 23.9
--- NOTE | 2022-01-08 | DI.ECHO.S_ITS ---
[facility]---------+ [facility] +---------+ : : [address] [place] : : : : [id number] : : : : Phone: [phone]+ Echocardiogram Report + + :Name: ALON HOANG Kael Study Date: 01/08/2022 Height: 69 in : :[facility] ReadingLocation: Weight: 160 lb : : Gender: Male BSA: 1.9 m2 : :: 1945 Age: 76 yrs BP: 143/91 mmHg: :Reason For Study: Atrial fibrillation : :Ordering Physician: GRACIELA, : :KAELA Performed By: Nilay Hickey : :Referring: KAELA OWENS : + + Interpretation Summary Normal left ventricle size with ejection fraction 50-55%. The left atrium is moderately dilated. The right atrium is mildly dilated. Moderate aortic valve sclerosis. The right ventricular systolic pressure is estimated to be at least 38 mmHg based on an estimated right atrial pressure of 15 mm Hg. The ascending aorta is mildly enlarged. Comparison is made with the echocardiogram of 12/08/2015, atrial fibrillation is new. Procedure: A two-dimensional transthoracic echocardiogram with color flow and Doppler was performed. The study quality was technically adequate. Comparison is made with the echocardiogram of 12/08/2015. The patient was in atrial fibrillation with controlled ventricular rate during the exam. Left Ventricle: The left ventricle is normal in size and wall thickness. Left ventricular systolic function is low normal. The ejection fraction is estimated to be 50-55%. There are no focal wall motion abnormalities. Diastolic function could not be accurately assessed due to atrial fibrillation. Right Ventricle: The right ventricle is normal in size and function. Atria: The left atrium is moderately dilated. The right atrium is mildly dilated. The interatrial septum grossly appears intact with no obvious evidence for an atrial septal defect. Mitral Valve: The mitral valve is normal in structure and function. There is trace mitral regurgitation. Aortic Valve: There is moderate aortic valve sclerosis. No aortic regurgitation is present. Tricuspid Valve: The tricuspid valve is normal in structure and function. There is trace tricuspid regurgitation. The right ventricular systolic pressure is estimated to be at least 38 mmHg based on an estimated right atrial pressure of 15 mm Hg. Pulmonic Valve: The pulmonic valve is normal in structure and function. There is no pulmonic valvular regurgitation. Great Vessels: The aortic root is normal size. The ascending aorta is mildly enlarged. The IVC is dilated (diameter is greater than 2.1 cm) and it collapses less than 50% with a sniff. This suggests a high right atrial pressure of 15 mm Hg. Pericardium/ Pleura There is no pericardial effusion. There is no pleural effusion. MMode/2D Measurements & Calculations LVIDd: 4.6 cm LVOT diam: 2.3 cm LVIDs: 3.4 cm Ao root diam: 3.5 cm FS: 26.1 % asc Aorta Diam: 4.0 cm IVSd: 0.80 cm LVPWd: 0.90 cm LV de leon. diameter/BSA (cm/m^2): 2.4 LV sys. diameter/BSA (cm/m^2): 1.8 LA dimension: 3.5 cm RA long axis: 6.0 cm LA A2 area: 24.4 cm2 LA A4 area: 24.9 cm2 LA length (vol): 6.0 cm LA vol: 85.7 ml LA vol index: 45.6 ml/m2 LVLs ap4: 7.0 cm LVLd ap2: 7.4 cm LVLs ap2: 6.5 cm TAPSE_phl: 2.1 cm Doppler Measurements & Calculations Ao V2 max: 116.0 cm/sec LVOT Max Jim: 92.7 cm/sec Ao V2 mean: 84.7 cm/sec LV V1 max P.4 mmHg Ao max P.0 mmHg LV V1 VTI: 17.4 cm Ao mean P.0 mmHg SOHEILA(I,D): 3.3 cm2 Ao V2 VTI: 22.1 cm SOHEILA(V,D): 3.3 cm2 sev ratio: 0.79 SOHEILA indexed to BSA (cm^2/m^2): 1.7 TR max jim: 241.0 cm/sec SV(LVOT): 72.3 ml TR max P.2 mmHg AV VR_phl: 0.80 SOHEILA(VTI)/BSA_phl: 1.7 Electronically signed by: Danilo Hernandez on Reading Physician:01/08/2022 11:34 AM
== END ==
PROVIDERS: Family Provider Family Medicine; PCP Family Medicine; Referring Provider Family Medicine; Visit Provider Family Medicine
DX: I48.92 Unspecified atrial flutter (principal); I77.89 Other specified disorders of arteries and arterioles
CPT/HCPCS: 93306